=== PATIENT | female | born 1940 | race Caucasian/White ===

== ENCOUNTER 2020-03-20 17:09 | Inpatient (IN) | payer MEDICARE, OTHER ==
[~2020-03-20] VITALS: Ht 152.4 cm; Wt 55.0 kg
--- NOTE | 2020-03-20 17:29 | NUR ---
Patient arrived via bed to room 504. no family present. Patient alert to self. Unable to answer admission questions or home med list at this time. Completed history from what was told in report from [facility] RN. Will notify Dr. Hinson of admission so orders can be made. Will continue to monitor.
[2020-03-20] MEDS ORDERED: ONDANSETRON PF 4 MG/2 ML VIAL. IVP PRN (18:00)
[2020-03-20] MEDS ORDERED: PIP/TAZO PER PHARMACY MC PRN (18:00)
[2020-03-20] MEDS ORDERED: MORPHINE SULFATE 2 MG/ML VIAL. IV PRN (18:00)
[2020-03-20] MEDS: IV NORMAL SALINE 1000ML BAG 1,000 ML IV SCH (18:28)
[2020-03-20] MEDS: PIPERACILLIN/TAZOBACTAM 2.25 GM in IV NORMAL SALINE 50ML 50 ML IV SCH ×2 (18:48→23:51)
[2020-03-20 19:00] VITALS: BP 163/78
[2020-03-20] MEDS: VANCOMYCIN PER PHARMACY MC PRN ×2 (19:09→19:11)
--- NOTE | 2020-03-20 19:13 | NUR ---
Pharmacy Vancomycin Dosing Note S:Consulted to monitor and dose vancomycin started 03/20/20. O:SIGRID CADENA is a 80 year old F with Sepsis UTI . Height: feet, inches Weight: kg [place] Body Weight: 52.40 Adjusted Body Weight: 52.24 Dosing Weight: Actual Other Antibiotics: ZOSYN LABS: Last BUN: Last Creatinine: 1.6 Creatinine Clearance: 23 mL/min Last WBC: 12.5 Last Procalcitonin: Tmax (past 24 hours): 98.4 Microbiology: I/O: Drug Levels: Last level: on at Last dose given 03/20/20 at 2000 Vancomycin Dosing: Loading Dose: 1250 mg x1 Dosing Weight: Actual Target Trough: 15-20 A: Based on: WEIGHT AND RENAL FUNCTION, VANCOMYCIN 1.25GM IV BOLUS GIVEN, P: 1. Begin Vancomycin 1000 mg IV q48h 2. Follow up Trough level on 03/24/20 at 1930 3. Pharmacy will continue to monitor, follow and adjust therapy as needed. GERMAN RUBALCAVA [facility], 03/20/20 [id number]
[2020-03-20 19:39] LABS: BILIRUBIN,URINE NEGATIVE (NEG); CLARITY,URINE CLOUDY; COLOR,URINE YELLOW; NITRITE,URINE POSITIVE (NEG); PH,URINE 5.5 (<5.0-8.0); PROTEIN,URINE 100 mg/dL (NEG-TRACE); UROBILINOGEN,URINE 0.2 mg/dL (0.2 mg/dL)
[2020-03-20 19:43] LABS: BACTERIA,URINE MANY /HPF (0-FEW); RBC,URINE OCC /HPF (0-2); SQUAMOUS EPITHELIAL CELL,UR FEW /LPF; WBC,URINE TNTC /HPF (0-4)
[2020-03-20] MEDS ORDERED: VANCOMYCIN 1.25 GM in IV NORMAL SALINE 250ML 250 ML IV ONE (20:00)
--- NOTE | 2020-03-20 20:56 | NUR ---
POSITIVE SEPSIS SCREEN NOTE: Spoke with Elise in ICU. Informed her of patient status and sepsis screen criteria. Patient was received from [facility] ED with admitting diagnosis which included sepsis, had already had blood cultures drawn, lactic 1.3, Vanc and Zosyn ordered and verified with ID during call back from consult. Stated that patient had good coverage for tonight and she would see the patient in the AM. No further recommendations at this time from Elise, unless patient becomes febrile, then a repeat lactic was suggested along with a call to ID to notify of patient status. Will continue to monitor.
[2020-03-20 23:00] VITALS: BP 177/81
[2020-03-21] VITALS (14 sets, daily range): BP systolic 106–174; BP diastolic 49–87
[2020-03-21] MEDS: PIPERACILLIN/TAZOBACTAM 2.25 GM in IV NORMAL SALINE 50ML 50 ML IV SCH (05:32)
[2020-03-21 06:40] LABS: BASO % 0 % (0-3); EOS % 0 % (0-3); HEMATOCRIT 34.5 % (36.0-47.0); HEMOGLOBIN 10.3 g/dL (12.0-15.5); LYMPH # 0.5 x10^3/uL (1.0-4.8); LYMPH % 3 % (24-48); MEAN CORPUSCULAR HEMOGLOBIN 33 pg (25-35); MEAN CORPUSCULAR HGB CONC 30 g/dL (31-37); MEAN CORPUSCULAR VOLUME 111 fL (79-100); MONO # 0.7 x10^3/uL (0.0-1.1); MONO % 5 % (0-9); NEUT # 13.8 x10^3/uL (1.8-7.7); NEUT % 92 % (31-73); PLATELET COUNT 236 x10^3/uL (140-400); RED BLOOD COUNT 3.12 x10^6/uL (3.50-5.40); RED CELL DISTRIBUTION WIDTH 22.5 % (11.5-14.5)
[2020-03-21] MEDS: IV NORMAL SALINE 1000ML BAG 1,000 ML IV SCH ×2 (07:20→20:54)
[2020-03-21 08:14] LABS: ALBUMIN/GLOBULIN RATIO 0.9 (1.0-1.7); CALCIUM 9.4 mg/dL (8.5-10.1); CREATININE 1.4 mg/dL (0.6-1.0); GFR 36.4; POTASSIUM 4.6 mmol/L (3.5-5.1); TOTAL BILIRUBIN 0.4 mg/dL (0.2-1.0); TOTAL PROTEIN 6.4 g/dL (6.4-8.2)
[2020-03-21] MEDS ORDERED: SODIUM BICARB ADULT 8.4% 50 MEQ/50 ML DISP.SYRIN. IV ONE (08:15)
[2020-03-21] MEDS ORDERED: ALBUTEROL SULFATE 2.5 MG/3 ML NEBU. NEB PRN (08:15)
[2020-03-21] MEDS: BUDESONIDE 0.5 MG/2 ML NEBU. NEB SCH ×2 (08:47→20:30)
[2020-03-21] MEDS: IPRATRPIUM/ALBUTEROL 0.5/2.5MG 3 ML NEBU. NEB SCH ×4 (08:47→20:30)
--- NOTE | 2020-03-21 08:48 | PDOC2 ---
CONSULT Date of Consult Date of Consult DATE: 03/21/20 TIME: 08:36 Reason for Consult Reason for Consult: gallstone pancreatitis Referring Physician Referring Physician: ER Identification/Chief Complaint Chief Complaint abdominal pain Source Source: Chart review, Patient History of Present Illness Reason for Visit: Patient is a very poor historian. Reports worsening abdominal pain x 1 week. Poor appetite, increased weakness, denies emesis. No diarrhea. From records c diff in September 2019. UTIs in past. Normally from ER note functional --currently not at baseline Denies O2 use at home Past Medical History Cardiovascular: HTN, Hyperlipidemia Pulmonary: Asthma, Bronchitis, Other (Pulmonary HTN) GI: GERD Endocrine: Diabetes Past Surgical History Past Surgical History: Other (unknown ) Family History Family History: Family History Unknown Social History No ALCOHOL: none Drugs: None Lives: with Family Current Medications Current Medications Current Medications Sodium Chloride 1,000 ml @ 75 mls/hr [id number] IV Last administered on 03/20/20at 18:28; Start 03/20/20 at 18:00 Piperacillin Sod/ Tazobactam Sod (Zosyn Per Pharmacy) 1 each PRN DAILY PRN MC SEE COMMENTS; Start 03/20/20 at 18:00 Vancomycin HCl (Vanco Per Pharmacy) 1 each PRN DAILY PRN MC SEE COMMENTS Last administered on 03/20/20at 19:11; Start 03/20/20 at 18:00 Ondansetron HCl (Zofran) 4 mg PRN Q6HRS PRN IVP NAUSEA/VOMITING; Start 03/20/20 at 18:00 Morphine Sulfate (Morphine Sulfate) 2 mg PRN Q2HR PRN IV PAIN; Start 03/20/20 at 18:00 Piperacillin Sod/ Tazobactam Sod 2.25 gm/Sodium Chloride 50 ml @ 100 mls/hr Q6HRS IV Last administered on 03/21/20at 05:32; Start 03/20/20 at 19:00 Vancomycin HCl 1.25 gm/Sodium Chloride 250 ml @ 167 mls/hr 1X ONCE IV Last administered on 03/20/20at 20:38; Start 03/20/20 at 20:00; Stop 03/20/20 at 21:29; Status DC Vancomycin HCl 1 gm/Sodium Chloride 250 ml @ 250 mls/hr Q48H IV ; Start 03/22/20 at 20:00 Vancomycin HCl (Vancomycin Trough Level) 1 each 1X ONCE MC ; Start 03/24/20 at 19:30; Stop 03/24/20 at 19:31 Albuterol/ Ipratropium (Duoneb) 3 ml RTQID NEB ; Start 03/21/20 at 08:15 Budesonide (Pulmicort) 0.5 mg RTBID NEB ; Start 03/21/20 at 08:15 Albuterol Sulfate (Ventolin Neb Soln) 2.5 mg PRN Q4HRS PRN NEB SHORTNESS OF BREATH; Start 03/21/20 at 08:15 Sodium Bicarbonate (Sodium Bicarb Adult 8.4% Syr) 50 meq 1X ONCE IV ; Start 03/21/20 at 08:15; Stop 03/21/20 at 08:32; Status DC Allergies Allergies: Coded Allergies: MARQUIS Inhibitors (Verified Allergy, Unknown, 03/20/20) Sulfa (Sulfonamide Antibiotics) (Verified Allergy, Unknown, 03/20/20) ciprofloxacin (Verified Allergy, Unknown, 03/20/20) glimepiride (Verified Allergy, Unknown, 03/20/20) levofloxacin (Verified Allergy, Unknown, 03/20/20) nitroglycerin (Verified Allergy, Unknown, 03/20/20) ROS General: YES: Fatigue, Malaise, Appetite (Loss) PSYCHOLOGICAL ROS: No: Anxiety, Depression Eyes: No Blurry vision, No Double vision HEENT: No: Heacaches, Sore Throat Hematological and Lymphatic: No: Bleeding Problems, Blood Clots Respiratory: YES: Shortness of breath; No: Cough Cardiovascular: No Chest Pain, No Palpitations Gastrointestinal: Yes Other (see hpi) Genitourinary: YES Dysuria; No Hematuria Musculoskeletal: Yes Muscular Weakness; No Joint Pain Neurological: No Impaired Coord/balance, No Numbness/Tingling Skin: No Pruritus, No Rash Physical Exam General: Cooperative, Other (acutely ill appearing ) HEENT: PERRLA, Mucous membr. moist/pink Lungs: Other (diminished, SOA on exam, requiring 02) Heart: Other (tachy) Abdomen: Soft, Other (mildly ttp upper abdomen ) Skin: No rashes, No breakdown Neuro: Normal speech, Sensation intact Psych/Mental Status: Other (confusion) MUSCULOSKELETAL: No deformity, No swelling Vitals VITALS Vital Signs Date Time Temp Pulse Resp B/P (MAP) Pulse Ox O2 Delivery O2 Flow Rate FiO2 03/21/20 03:00 97.6 117 35 174/81 (112) 90 Nasal Cannula 2.0 97.6 Labs Labs Laboratory Tests Test 03/20/20 17:50 03/20/20 20:35 03/21/20 06:00 Urine Collection Type Unknown Urine Color Yellow Urine Clarity Cloudy Urine pH 5.5 (<5.0-8.0) Urine Specific [place] 1.020 (1.000-1.030) Urine Protein 100 mg/dL (NEG-TRACE) Urine Glucose (UA) Negative mg/dL (NEG) Urine Ketones (Stick) Trace mg/dL (NEG) Urine Blood Large (NEG) Urine Nitrite Positive (NEG) Urine Bilirubin Negative (NEG) Urine Urobilinogen Dipstick 0.2 mg/dL (0.2 mg/dL) Urine Leukocyte Esterase Large (NEG) Urine RBC Occ /HPF (0-2) Urine WBC Tntc /HPF (0-4) Urine Squamous Epithelial Cells Few /LPF Urine Bacteria Many /HPF (0-FEW) Urine Mucus Mod /LPF Glucose (Fingerstick) 134 mg/dL (70-99) White Blood Count 15.0 x10^3/uL (4.0-11.0) Red Blood Count 3.12 x10^6/uL (3.50-5.40) Hemoglobin 10.3 g/dL (12.0-15.5) Hematocrit 34.5 % (36.0-47.0) Mean Corpuscular Volume 111 fL (79-100) Mean Corpuscular Hemoglobin 33 pg (25-35) Mean Corpuscular Hemoglobin Concent 30 g/dL (31-37) Red Cell Distribution Width 22.5 % (11.5-14.5) Platelet Count 236 x10^3/uL (140-400) Neutrophils (%) (Auto) 92 % (31-73) Lymphocytes (%) (Auto) 3 % (24-48) Monocytes (%) (Auto) 5 % (0-9) Eosinophils (%) (Auto) 0 % (0-3) Basophils (%) (Auto) 0 % (0-3) Neutrophils # (Auto) 13.8 x10^3/uL (1.8-7.7) Lymphocytes # (Auto) 0.5 x10^3/uL (1.0-4.8) Monocytes # (Auto) 0.7 x10^3/uL (0.0-1.1) Eosinophils # (Auto) 0.0 x10^3/uL (0.0-0.7) Basophils # (Auto) 0.0 x10^3/uL (0.0-0.2) Sodium Level 146 mmol/L (136-145) Potassium Level 4.6 mmol/L (3.5-5.1) Chloride Level 115 mmol/L (98-107) Carbon Dioxide Level 11 mmol/L (21-32) Anion Gap 20 (6-14) Blood Urea Nitrogen 38 mg/dL (7-20) Creatinine 1.4 mg/dL (0.6-1.0) Estimated GFR (Cockcroft-Gault) 36.4 BUN/Creatinine Ratio 27 (6-20) Glucose Level 152 mg/dL (70-99) Calcium Level 9.4 mg/dL (8.5-10.1) Total Bilirubin 0.4 mg/dL (0.2-1.0) Aspartate Amino Transf (AST/SGOT) 31 U/L (15-37) Alanine Aminotransferase (ALT/SGPT) 21 U/L (14-59) Alkaline Phosphatase 66 U/L (46-116) Total Protein 6.4 g/dL (6.4-8.2) Albumin 3.0 g/dL (3.4-5.0) Albumin/Globulin Ratio 0.9 (1.0-1.7) Lipase 615 U/L (73-393) Laboratory Tests Test 03/20/20 17:50 03/20/20 20:35 03/21/20 06:00 Urine Collection Type Unknown Urine Color Yellow Urine Clarity Cloudy Urine pH 5.5 (<5.0-8.0) Urine Specific [place] 1.020 (1.000-1.030) Urine Protein 100 mg/dL (NEG-TRACE) Urine Glucose (UA) Negative mg/dL (NEG) Urine Ketones (Stick) Trace mg/dL (NEG) Urine Blood Large (NEG) Urine Nitrite Positive (NEG) Urine Bilirubin Negative (NEG) Urine Urobilinogen Dipstick 0.2 mg/dL (0.2 mg/dL) Urine Leukocyte Esterase Large (NEG) Urine RBC Occ /HPF (0-2) Urine WBC Tntc /HPF (0-4) Urine Squamous Epithelial Cells Few /LPF Urine Bacteria Many /HPF (0-FEW) Urine Mucus Mod /LPF Glucose (Fingerstick) 134 mg/dL (70-99) White Blood Count 15.0 x10^3/uL (4.0-11.0) Red Blood Count 3.12 x10^6/uL (3.50-5.40) Hemoglobin 10.3 g/dL (12.0-15.5) Hematocrit 34.5 % (36.0-47.0) Mean Corpuscular Volume 111 fL (79-100) Mean Corpuscular Hemoglobin 33 pg (25-35) Mean Corpuscular Hemoglobin Concent 30 g/dL (31-37) Red Cell Distribution Width 22.5 % (11.5-14.5) Platelet Count 236 x10^3/uL (140-400) Neutrophils (%) (Auto) 92 % (31-73) Lymphocytes (%) (Auto) 3 % (24-48) Monocytes (%) (Auto) 5 % (0-9) Eosinophils (%) (Auto) 0 % (0-3) Basophils (%) (Auto) 0 % (0-3) Neutrophils # (Auto) 13.8 x10^3/uL (1.8-7.7) Lymphocytes # (Auto) 0.5 x10^3/uL (1.0-4.8) Monocytes # (Auto) 0.7 x10^3/uL (0.0-1.1) Eosinophils # (Auto) 0.0 x10^3/uL (0.0-0.7) Basophils # (Auto) 0.0 x10^3/uL (0.0-0.2) Sodium Level 146 mmol/L (136-145) Potassium Level 4.6 mmol/L (3.5-5.1) Chloride Level 115 mmol/L (98-107) Carbon Dioxide Level 11 mmol/L (21-32) Anion Gap 20 (6-14) Blood Urea Nitrogen 38 mg/dL (7-20) Creatinine 1.4 mg/dL (0.6-1.0) Estimated GFR (Cockcroft-Gault) 36.4 BUN/Creatinine Ratio 27 (6-20) Glucose Level 152 mg/dL (70-99) Calcium Level 9.4 mg/dL (8.5-10.1) Total Bilirubin 0.4 mg/dL (0.2-1.0) Aspartate Amino Transf (AST/SGOT) 31 U/L (15-37) Alanine Aminotransferase (ALT/SGPT) 21 U/L (14-59) Alkaline Phosphatase 66 U/L (46-116) Total Protein 6.4 g/dL (6.4-8.2) Albumin 3.0 g/dL (3.4-5.0) Albumin/Globulin Ratio 0.9 (1.0-1.7) Lipase 615 U/L (73-393) Assessment/Plan Assessment/Plan gallstone pancreatitis---benign abdominal exam UTI hypoxia, pulmonary HTN sepsis on admission medical management bowel rest RADHIKA BAKER SMOKE CHASER Mar 21, 2020 08:48
--- NOTE | 2020-03-21 09:03 | PDOC1 ---
History and Physical Date of Admission Date of Admission DATE: 03/21/20 TIME: 08:57 Identification/Chief Complaint Chief Complaint Abdominal pain Source Source: Caregiver, Chart review, Patient History of Present Illness History of Present Illness Ms Fierro is a 80 yo w/ PMHx C. diff in September, history of gallstone, history of bronchial asthma, hypertension, hyperlipidemia, gastroesophageal reflux disease, type 2 diabetes, pulmonary hypertension, Sjogren syndrome, squamous cell cancer of the skin, basal cell carcinoma who presents to [facility] ED c/o abdominal pain. She reports generalized abdominal pain, she is unable to describe characteristics, frequency, provoking and/or alleviating factors. She denies any recent fever or COVID-19 contact. She lives at home with and typically performs all activities of daily living without issues, admits she has been more weak and sedentary recently. She does note diarrhea but cannot characterize type of diarrhea/consistency/frequency. She spoke with her primary care physician this morning who recommended she come seek evaluation at the ER. 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 Daughter reports patient is not at baseline, admits patient is chronically ill and has been on a steady decline particularly over the past 2 years, but has been ill for the past 7 years. She has been alternating between 7 C. difficile and urinary tract infections for the past 2 years and also has been evaluated by at [facility] for cardiomyopathy recently did have an appointment [address] Cheng and had her diuretic dose increased. Labs at [facility] show WBC 12.5, Hb 10.7, platelets 298, MCV 115, NA 141, K4.6, BUN 42, CR 1.6, albumin 3.5, glucose 165, calcium 10.9, CK 221, lipase 2020, BNP 99323. Chest x-ray with conspicuous right hilar fullness. CT head with Mild cerebral volume loss. Mild chronic small vessel ischemic disease. CT chest abdomen and pelvis reveal peripancreatic fat haziness, right upper lobe and left lower lobe solid nodules, left renal 11 mm hyperdense lesion and cholelithiasis. EKG interpreted as narrow complex sinus tachycardia at 117 bpm, unremarkable intervals, no axis deviation, no acute ischemic findings, no STEMI Seen at [facility] with heart rate 125, respiratory rate 45/min struggling to breathe on 2 L of oxygen. Conversational dyspnea not able to answer more than yes/no questions. Seen with GI, general surgery, and pulmonology and immediate transfer to ICU is been initiated on BiPAP. I have informed her daughter of her current status, and her daughter has made it clear she does not wish for mother to have chest compressions if she does have cardiac arrest. Past Medical History Cardiovascular: HTN, Hyperlipidemia Pulmonary: Asthma, Bronchitis, Other (Pulmonary HTN) GI: GERD Endocrine: Diabetes Past Surgical History Past Surgical History: Other (unknown ) Family History Family History: Family History Unknown Social History Smoke: No ALCOHOL: none Drugs: None Current Medications Current Medications Current Medications Sodium Chloride 1,000 ml @ 75 mls/hr [id number] IV Last administered on 03/20/20at 18:28; Start 03/20/20 at 18:00 Piperacillin Sod/ Tazobactam Sod (Zosyn Per Pharmacy) 1 each PRN DAILY PRN MC SEE COMMENTS; Start 03/20/20 at 18:00 Vancomycin HCl (Vanco Per Pharmacy) 1 each PRN DAILY PRN MC SEE COMMENTS Last administered on 03/20/20at 19:11; Start 03/20/20 at 18:00 Ondansetron HCl (Zofran) 4 mg PRN Q6HRS PRN IVP NAUSEA/VOMITING; Start 03/20/20 at 18:00 Morphine Sulfate (Morphine Sulfate) 2 mg PRN Q2HR PRN IV PAIN; Start 03/20/20 at 18:00 Piperacillin Sod/ Tazobactam Sod 2.25 gm/Sodium Chloride 50 ml @ 100 mls/hr Q6HRS IV Last administered on 03/21/20at 05:32; Start 03/20/20 at 19:00 Vancomycin HCl 1.25 gm/Sodium Chloride 250 ml @ 167 mls/hr 1X ONCE IV Last administered on 03/20/20at 20:38; Start 03/20/20 at 20:00; Stop 03/20/20 at 21:29; Status DC Vancomycin HCl 1 gm/Sodium Chloride 250 ml @ 250 mls/hr Q48H IV ; Start 03/22/20 at 20:00 Vancomycin HCl (Vancomycin Trough Level) 1 each 1X ONCE MC ; Start 03/24/20 at 19:30; Stop 03/24/20 at 19:31 Albuterol/ Ipratropium (Duoneb) 3 ml RTQID NEB Last administered on 03/21/20at 08:47; Start 03/21/20 at 08:15 Budesonide (Pulmicort) 0.5 mg RTBID NEB Last administered on 03/21/20at 08:47; Start 03/21/20 at 08:15 Albuterol Sulfate (Ventolin Neb Soln) 2.5 mg PRN Q4HRS PRN NEB SHORTNESS OF BREATH; Start 03/21/20 at 08:15 Sodium Bicarbonate (Sodium Bicarb Adult 8.4% Syr) 50 meq 1X ONCE IV Last administered on 03/21/20at 08:48; Start 03/21/20 at 08:15; Stop 03/21/20 at 08:32; Status DC Allergies Allergies: Coded Allergies: MARQUIS Inhibitors (Verified Allergy, Unknown, 03/20/20) Sulfa (Sulfonamide Antibiotics) (Verified Allergy, Unknown, 03/20/20) ciprofloxacin (Verified Allergy, Unknown, 03/20/20) glimepiride (Verified Allergy, Unknown, 03/20/20) levofloxacin (Verified Allergy, Unknown, 03/20/20) nitroglycerin (Verified Allergy, Unknown, 03/20/20) ROS Review of System Unable to obtain, patient confused and only responding with yes and no Vitals Vitals Vital Signs Date Time Temp Pulse Resp B/P (MAP) Pulse Ox O2 Delivery O2 Flow Rate FiO2 03/21/20 08:45 96 Nasal Cannula 2.5 03/21/20 07:00 96.9 119 32 162/87 (112) 96.9 Labs Labs Laboratory Tests Test 03/20/20 17:50 03/20/20 20:35 03/21/20 06:00 03/21/20 07:30 Urine Collection Type Unknown Urine Color Yellow Urine Clarity Cloudy Urine pH 5.5 (<5.0-8.0) Urine Specific [place] 1.020 (1.000-1.030) Urine Protein 100 mg/dL (NEG-TRACE) Urine Glucose (UA) Negative mg/dL (NEG) Urine Ketones (Stick) Trace mg/dL (NEG) Urine Blood Large (NEG) Urine Nitrite Positive (NEG) Urine Bilirubin Negative (NEG) Urine Urobilinogen Dipstick 0.2 mg/dL (0.2 mg/dL) Urine Leukocyte Esterase Large (NEG) Urine RBC Occ /HPF (0-2) Urine WBC Tntc /HPF (0-4) Urine Squamous Epithelial Cells Few /LPF Urine Bacteria Many /HPF (0-FEW) Urine Mucus Mod /LPF Glucose (Fingerstick) 134 mg/dL (70-99) 143 mg/dL (70-99) White Blood Count 15.0 x10^3/uL (4.0-11.0) Red Blood Count 3.12 x10^6/uL (3.50-5.40) Hemoglobin 10.3 g/dL (12.0-15.5) Hematocrit 34.5 % (36.0-47.0) Mean Corpuscular Volume 111 fL (79-100) Mean Corpuscular Hemoglobin 33 pg (25-35) Mean Corpuscular Hemoglobin Concent 30 g/dL (31-37) Red Cell Distribution Width 22.5 % (11.5-14.5) Platelet Count 236 x10^3/uL (140-400) Neutrophils (%) (Auto) 92 % (31-73) Lymphocytes (%) (Auto) 3 % (24-48) Monocytes (%) (Auto) 5 % (0-9) Eosinophils (%) (Auto) 0 % (0-3) Basophils (%) (Auto) 0 % (0-3) Neutrophils # (Auto) 13.8 x10^3/uL (1.8-7.7) Lymphocytes # (Auto) 0.5 x10^3/uL (1.0-4.8) Monocytes # (Auto) 0.7 x10^3/uL (0.0-1.1) Eosinophils # (Auto) 0.0 x10^3/uL (0.0-0.7) Basophils # (Auto) 0.0 x10^3/uL (0.0-0.2) Sodium Level 146 mmol/L (136-145) Potassium Level 4.6 mmol/L (3.5-5.1) Chloride Level 115 mmol/L (98-107) Carbon Dioxide Level 11 mmol/L (21-32) Anion Gap 20 (6-14) Blood Urea Nitrogen 38 mg/dL (7-20) Creatinine 1.4 mg/dL (0.6-1.0) Estimated GFR (Cockcroft-Gault) 36.4 BUN/Creatinine Ratio 27 (6-20) Glucose Level 152 mg/dL (70-99) Calcium Level 9.4 mg/dL (8.5-10.1) Total Bilirubin 0.4 mg/dL (0.2-1.0) Aspartate Amino Transf (AST/SGOT) 31 U/L (15-37) Alanine Aminotransferase (ALT/SGPT) 21 U/L (14-59) Alkaline Phosphatase 66 U/L (46-116) Total Protein 6.4 g/dL (6.4-8.2) Albumin 3.0 g/dL (3.4-5.0) Albumin/Globulin Ratio 0.9 (1.0-1.7) Lipase 615 U/L (73-393) Laboratory Tests Test 03/20/20 17:50 03/20/20 20:35 03/21/20 06:00 03/21/20 07:30 Urine Collection Type Unknown Urine Color Yellow Urine Clarity Cloudy Urine pH 5.5 (<5.0-8.0) Urine Specific [place] 1.020 (1.000-1.030) Urine Protein 100 mg/dL (NEG-TRACE) Urine Glucose (UA) Negative mg/dL (NEG) Urine Ketones (Stick) Trace mg/dL (NEG) Urine Blood Large (NEG) Urine Nitrite Positive (NEG) Urine Bilirubin Negative (NEG) Urine Urobilinogen Dipstick 0.2 mg/dL (0.2 mg/dL) Urine Leukocyte Esterase Large (NEG) Urine RBC Occ /HPF (0-2) Urine WBC Tntc /HPF (0-4) Urine Squamous Epithelial Cells Few /LPF Urine Bacteria Many /HPF (0-FEW) Urine Mucus Mod /LPF Glucose (Fingerstick) 134 mg/dL (70-99) 143 mg/dL (70-99) White Blood Count 15.0 x10^3/uL (4.0-11.0) Red Blood Count 3.12 x10^6/uL (3.50-5.40) Hemoglobin 10.3 g/dL (12.0-15.5) Hematocrit 34.5 % (36.0-47.0) Mean Corpuscular Volume 111 fL (79-100) Mean Corpuscular Hemoglobin 33 pg (25-35) Mean Corpuscular Hemoglobin Concent 30 g/dL (31-37) Red Cell Distribution Width 22.5 % (11.5-14.5) Platelet Count 236 x10^3/uL (140-400) Neutrophils (%) (Auto) 92 % (31-73) Lymphocytes (%) (Auto) 3 % (24-48) Monocytes (%) (Auto) 5 % (0-9) Eosinophils (%) (Auto) 0 % (0-3) Basophils (%) (Auto) 0 % (0-3) Neutrophils # (Auto) 13.8 x10^3/uL (1.8-7.7) Lymphocytes # (Auto) 0.5 x10^3/uL (1.0-4.8) Monocytes # (Auto) 0.7 x10^3/uL (0.0-1.1) Eosinophils # (Auto) 0.0 x10^3/uL (0.0-0.7) Basophils # (Auto) 0.0 x10^3/uL (0.0-0.2) Sodium Level 146 mmol/L (136-145) Potassium Level 4.6 mmol/L (3.5-5.1) Chloride Level 115 mmol/L (98-107) Carbon Dioxide Level 11 mmol/L (21-32) Anion Gap 20 (6-14) Blood Urea Nitrogen 38 mg/dL (7-20) Creatinine 1.4 mg/dL (0.6-1.0) Estimated GFR (Cockcroft-Gault) 36.4 BUN/Creatinine Ratio 27 (6-20) Glucose Level 152 mg/dL (70-99) Calcium Level 9.4 mg/dL (8.5-10.1) Total Bilirubin 0.4 mg/dL (0.2-1.0) Aspartate Amino Transf (AST/SGOT) 31 U/L (15-37) Alanine Aminotransferase (ALT/SGPT) 21 U/L (14-59) Alkaline Phosphatase 66 U/L (46-116) Total Protein 6.4 g/dL (6.4-8.2) Albumin 3.0 g/dL (3.4-5.0) Albumin/Globulin Ratio 0.9 (1.0-1.7) Lipase 615 U/L (73-393) Images Images CXR: The cardiomediastinal silhouette is within normal limits. Lungs are clear. Right hilar fullness may be associated with lymphadenopathy. There are no significant pleural effusions. There is no pulmonary vascular congestion. No pneumothorax. No suspicious osseous abnormality. IMPRESSION: There is no acute cardiopulmonary process. More conspicuous right hilar fullness compared to prior examination. Consideration may be given for lymphadenopathy. These nodes could be calcified suggesting underlying granulomatous exposure. However, further characterization with CT chest may be of benefit. CT HEAD WO CONTRAST Mild generalized cerebral and cerebellar volume loss. Mild nonspecific periventricular hypoattenuation, most commonly seen with chronic small vessel ischemic disease. Calcified atherosclerosis of the bilateral cavernous and para clinoid internal carotid arteries and intracranial vertebral arteries. No intra- or extra-axial mass or fluid collection. No acute hemorrhage. The ventricles are normal in size, shape, and morphology. The bourgeois-white matter junction is normal. The subarachnoid cisterns are patent. The visualized paranasal sinuses are normal. The visualized portions of the orbits and globes are normal. The mastoid air cells are clear. The associate professor of management topogram shows no lytic lesion or fracture. Impression: No acute intracranial process. Mild cerebral volume loss. Mild chronic small vessel ischemic disease. CT CHEST ABDOMEN PELVIS WO Motion artifact degrades majority. The thyroid is symmetric. There is no axillary, mediastinal, or hilar adenopathy, although evaluation of the ronnie is limited without IV contrast. Atherosclerosis of the thoracic aorta and branch vessels. Cardiomegaly. Coronary artery atherosclerotic disease. There is no pericardial effusion. Right upper lobe part solid nodule with 6 mm solid component and left lower lobe part solid nodule with 6 mm solid component. The central airways are patent. No pleural abnormality. Evaluation of solid abdominal viscera is limited without the use of IV contrast. However, the liver, spleen, and adrenal glands are unremarkable. Cholelithiasis. Ill-defined haziness in the peripancreatic fat. Left renal 11 mm hyperdense lesion measuring 55 Hounsfield units. There is no significant mesenteric or retroperitoneal adenopathy identified, though evaluation is limited without intravenous contrast. There is no evidence of free intraperitoneal fluid or pneumoperitoneum. Colonic diverticulosis Bladder is unremarkable. Uterus is present There is no significant pelvic ascites. No significant iliac or inguinal adenopathy is identified. No acute osseous abnormality. Degenerative changes of the spine IMPRESSION: 1. Ill-defined haziness in the peripancreatic fat, nonspecific but can be seen with hepatitis. Correlate with laboratory values. No fluid collection. 2. Right upper lobe and left lower lobe part solid nodules. These could represent focal areas of infection/inflammation including fungal or potentially aspiration. Underlying neoplasm not excluded. Recommend three-month follow-up chest CT to assess stability/resolution. 3. Indeterminate left renal 11 mm hyperdense lesion, possibly a cyst with proteinaceous debris. Renal ultrasound could further characterize cystic versus solid nature. 4. Cholelithiasis. VTE Prophylaxis Ordered VTE Prophylaxis Devices: No VTE Pharmacological Prophylaxi: Yes Assessment/Plan Assessment/Plan A/P: Acute encephalopathy - likely metabolic from pancreatitis, sepsis. Sepsis -likely secondary to UTI and C. difficile, will consult infectious diseases for assistance. UTI (urinary tract infection) -started on empiric vancomycin, Rocephin and Zosyn by ED, will ID consulted. Acute Pancreatitis -unclear etiology, may be due to sepsis. GI consulted for assistance. Left renal mass - will obtain renal ultrasound when she is more stable. Pulmonary nodules - concerning for solid mass bilaterally. Pulmonology consulted, needs close f/u. H/o asthma - nebulizers ordered Cholelithiasis - general surgery following Intractable Abdominal pain -lateral portion had a physical exam. Concerning for potential ischemic colitis, however pancreatitis does not possible as well. GI and general surgery History of recurrent Clostridium difficile. Acute hypoxic respiratory failure, on BiPAP. Acute on chronic Anemia - possibly GI bleed, will monitor. Weight loss - likely from chronic and acid disease History of Sjogren's - worsening Diabetes mellitus - Sliding scale Severe metabolic acidosis - likely from sepsis, will need close monitoring Acute kidney injury - vasomotor nephropathy from sepsis, will hydrate Elevated BNP - does have cardiology at [facility]. Will consult cardiology for further recommendations as her fluid status is difficult to currently interpret and with sepsis I would err on giving fluids as she is on BIPAP FEN - NPO PPX - heparin CODE - No compressions or shocks, meds and vent ok per daughter, Heydi, DPOA, . ( is also DPOA, however daughter notes he has early alzheimer's) She does have 3 living siblings as well who are not medical DPOA. Dispo - ICU for critical illness and respiratory distress CC time 58 minutes Justifications for Admission Other Justification SANTI LINO MD Mar 21, 2020 09:03
[2020-03-21 09:07] LABS: BASE EXCESS ABG -20 mmol/L (-3-3); HCO3 ABG 7 mmol/L (21-28); PO2 ABG 85 mmHg (65-108); SAT O2 ABG 93 % (92-99)
[2020-03-21 09:09] LABS: FIO2 ABG 30; PCO2 ABG 18 mmHg (35-46)
--- NOTE | 2020-03-21 09:09 | PDOC2 ---
GI CONSULT Date of Service: DATE: 03/21/20 TIME: 09:09 Reason For Consult: pancreatitis HPI: HPI: 80 y/o female sent from [facility]. Per nurse, was told she was found by family at home in a hamper and taken to ER. Currently limited history from pt - cannot remember what hospital she's at, cannot tell me the year. RT and nurse present, also d/w Dr. Woods/pulm and Gretchen/surgery. Per review of records - saw PCP on Wednesday, had antibiotics prescribed (but didn't start) for presumed enterocolitis - h/o C Diff last treated in 09/2019, "long history of GI problems." ER note indicates she reported abdominal pain and diarrhea but couldn't describe/elaborate. At [facility]: UA c/w UTI, WBC 13, Hgb 10.7, macrocytosis, CO2 11, normal lactic, normal LFTs, BNP >67889, lipase 2019, elevated CK. CXR unremarkable, CT head w/o acute process but noted mild cerebral volume loss and mild chronic small vessel ischemic disease, CT C/A/P w/o contrast limited by motion artifact but showed cardiomegaly, CAD, RUL and HEAVEN nodules, unremarkable liver, cholelithiasis, left renal lesion, no significant adenopathy, diverticulosis, unremarkable bladder, and ill-defined haziness in peripancreatic fat (nonspecific but possible w/ hepatitis). Records indicate h/o weight loss, dysphagia, and non-specific colitis on CT when admitted to [facility] in 2017. Records also indicate h/o GERD and past colonoscopy. PMH: PMH: per [facility] records: asthma, HTN, HLD, GERD, DM, OA, pulm hypertension, Sjogren's, BCC, SCC, UTI cystoscopy w/ bladder biopsy, salivary gland surgery, cataract extraction (bilateral) FH: Family History: Cancer (lung) Social History: Smoke: No ALCOHOL: none Drugs: None ROS: Limited, refer to HPI. Vitals: Vitals: Vital Signs Date Time Temp Pulse Resp B/P (MAP) Pulse Ox O2 Delivery O2 Flow Rate FiO2 03/21/20 08:45 96 Nasal Cannula 2.5 03/21/20 07:00 96.9 119 32 162/87 (112) 96.9 Labs: Labs: Laboratory Tests Test 03/20/20 17:50 03/20/20 20:35 03/21/20 06:00 03/21/20 07:30 Urine Collection Type Unknown Urine Color Yellow Urine Clarity Cloudy Urine pH 5.5 (<5.0-8.0) Urine Specific [place] 1.020 (1.000-1.030) Urine Protein 100 mg/dL (NEG-TRACE) Urine Glucose (UA) Negative mg/dL (NEG) Urine Ketones (Stick) Trace mg/dL (NEG) Urine Blood Large (NEG) Urine Nitrite Positive (NEG) Urine Bilirubin Negative (NEG) Urine Urobilinogen Dipstick 0.2 mg/dL (0.2 mg/dL) Urine Leukocyte Esterase Large (NEG) Urine RBC Occ /HPF (0-2) Urine WBC Tntc /HPF (0-4) Urine Squamous Epithelial Cells Few /LPF Urine Bacteria Many /HPF (0-FEW) Urine Mucus Mod /LPF Glucose (Fingerstick) 134 mg/dL (70-99) 143 mg/dL (70-99) White Blood Count 15.0 x10^3/uL (4.0-11.0) Red Blood Count 3.12 x10^6/uL (3.50-5.40) Hemoglobin 10.3 g/dL (12.0-15.5) Hematocrit 34.5 % (36.0-47.0) Mean Corpuscular Volume 111 fL (79-100) Mean Corpuscular Hemoglobin 33 pg (25-35) Mean Corpuscular Hemoglobin Concent 30 g/dL (31-37) Red Cell Distribution Width 22.5 % (11.5-14.5) Platelet Count 236 x10^3/uL (140-400) Neutrophils (%) (Auto) 92 % (31-73) Lymphocytes (%) (Auto) 3 % (24-48) Monocytes (%) (Auto) 5 % (0-9) Eosinophils (%) (Auto) 0 % (0-3) Basophils (%) (Auto) 0 % (0-3) Neutrophils # (Auto) 13.8 x10^3/uL (1.8-7.7) Lymphocytes # (Auto) 0.5 x10^3/uL (1.0-4.8) Monocytes # (Auto) 0.7 x10^3/uL (0.0-1.1) Eosinophils # (Auto) 0.0 x10^3/uL (0.0-0.7) Basophils # (Auto) 0.0 x10^3/uL (0.0-0.2) Sodium Level 146 mmol/L (136-145) Potassium Level 4.6 mmol/L (3.5-5.1) Chloride Level 115 mmol/L (98-107) Carbon Dioxide Level 11 mmol/L (21-32) Anion Gap 20 (6-14) Blood Urea Nitrogen 38 mg/dL (7-20) Creatinine 1.4 mg/dL (0.6-1.0) Estimated GFR (Cockcroft-Gault) 36.4 BUN/Creatinine Ratio 27 (6-20) Glucose Level 152 mg/dL (70-99) Calcium Level 9.4 mg/dL (8.5-10.1) Total Bilirubin 0.4 mg/dL (0.2-1.0) Aspartate Amino Transf (AST/SGOT) 31 U/L (15-37) Alanine Aminotransferase (ALT/SGPT) 21 U/L (14-59) Alkaline Phosphatase 66 U/L (46-116) Total Protein 6.4 g/dL (6.4-8.2) Albumin 3.0 g/dL (3.4-5.0) Albumin/Globulin Ratio 0.9 (1.0-1.7) Lipase 615 U/L (73-393) Allergies: Coded Allergies: MARQUIS Inhibitors (Verified Allergy, Unknown, 03/20/20) Sulfa (Sulfonamide Antibiotics) (Verified Allergy, Unknown, 03/20/20) ciprofloxacin (Verified Allergy, Unknown, 03/20/20) glimepiride (Verified Allergy, Unknown, 03/20/20) levofloxacin (Verified Allergy, Unknown, 03/20/20) nitroglycerin (Verified Allergy, Unknown, 03/20/20) Medications: Current Medications Medications (Trade) Dose Ordered Sig/Bridget Route PRN Reason Start Time Stop Time Status Last Admin Dose Admin Sodium Chloride 1,000 ml @ 75 mls/hr [id number] IV 03/20/20 18:00 03/20/20 18:28 Vancomycin HCl (Vanco Per Pharmacy) 1 each PRN DAILY PRN MC SEE COMMENTS 03/20/20 18:00 03/20/20 19:11 Piperacillin Sod/ Tazobactam Sod 2.25 gm/Sodium Chloride 50 ml @ 100 mls/hr Q6HRS IV 03/20/20 19:00 03/21/20 05:32 Vancomycin HCl 1.25 gm/Sodium Chloride 250 ml @ 167 mls/hr 1X ONCE IV 03/20/20 20:00 03/20/20 21:29 DC 03/20/20 20:38 Albuterol/ Ipratropium (Duoneb) 3 ml RTQID NEB 03/21/20 08:15 03/21/20 08:47 Budesonide (Pulmicort) 0.5 mg RTBID NEB 03/21/20 08:15 03/21/20 08:47 Sodium Bicarbonate (Sodium Bicarb Adult 8.4% Syr) 50 meq 1X ONCE IV 03/21/20 08:15 03/21/20 08:32 DC 03/21/20 08:48 PE: GEN: ill HEENT: Atraumatic, PERRL LUNGS: clear but tachypneic HEART: tachycardic ABD: quiet, soft, non-tender EXTREMITY: cool SKIN: No rashes, no jaundice NEURO/PSYCH: confused A/P: A/P: Abd pain, ?diarrhea, AMS, resp failure Leukocytosis, UTI, macrocytic anemia Pancreatitis, cholelithiasis - benign abd exam, normal LFTs, lipase improved ?h/o GERD ?CRC screen H/o C Diff -- Plans to transfer to ICU. Treat UTI, would keep NPO for now. Check anemia parameters for completeness. Stool studies if able. Dr. Woods wonders about colitis/ischemia - no mention of abnormal colon findings on CT report - will review w/ Dr. Shaffer. MARY GUEVARA Mar 21, 2020 09:09
--- NOTE | 2020-03-21 09:45 | CONS ---
DATE OF CONSULTATION: 03/21/2020 PULMONARY CONSULTATION ATTENDING PHYSICIAN: Evangelina Hinson III, DO REASON FOR CONSULTATION: Sepsis. HISTORY OF PRESENT ILLNESS: The patient is a 80-year-old female, who was seen by her primary care physician for abnormal labs and unintentional weight loss. She lost about 30 pounds. She was found to have hyponatremia, hypokalemia and also had some diarrhea. This was going on for almost 2 months. The patient was hospitalized at [facility] and then the workup revealed that she had evidence of UTI. She also had increased lipase levels. Her chest x-ray was clear. She was transferred to our facility on the 5th floor. I was called this morning with her respiratory rate in the 40s. She is lethargic, but she is arousable. She is answering questions. She states no to tobacco use and does not have any alcohol use. She is currently on oxygen at 2 liters. Saturations are in the mid 90s, but her respirations are in the 30s and she is sweating. I have been asked to see her for further evaluation. PAST MEDICAL HISTORY: Significant for history of C. diff in September, history of gallstone, history of bronchial asthma, hypertension, hyperlipidemia, gastroesophageal reflux disease, type 2 diabetes, pulmonary hypertension, Sjogren syndrome, squamous cell cancer of the skin, basal cell carcinoma. PAST SURGICAL HISTORY: Cystoscopy with bladder biopsy, history of hysterectomy, salivary gland surgery, and colonoscopy. FAMILY HISTORY: Noncontributory to lungs. SOCIAL HISTORY: Nonsmoker. No history of alcohol use. REVIEW OF SYSTEMS: Ten-point system obtained. Pertinent positives discussed in my history of present illness, otherwise noncontributory. All systems that were negative were reviewed as well. MEDICATIONS: Reviewed, including broad-spectrum antibiotics. PHYSICAL EXAMINATION: GENERAL: She is tachypneic. She is in respiratory distress. VITAL SIGNS: Blood pressure 162/87, afebrile, pulse ox 96% on 2.5 liters. NECK: Supple. LUNGS: With diminished breath sounds. No crackles. CARDIOVASCULAR: With a regular rate and rhythm. ABDOMEN: Soft, nontender. EXTREMITIES: With no pitting edema. LABORATORY DATA: Reviewed. White cell count 15.0, hemoglobin 10.3 and platelets are 236. Her bicarb is 11. BUN 36 and a creatinine of 1.4. Her lipase is 615. IMPRESSION: 1. Acute respiratory failure secondary to sepsis. 2. Sepsis, likely contribution could be urinary tract infection versus recurrent Clostridium difficile colitis/ Ischemic colitis Although, lipase is elevated, but abdominal exam is benign and pancreatitis would be in the differential diagnosis as well. 3. No significant tobacco history. 4. Severe metabolic acidosis secondary to sepsis. 5. Acute kidney injury. 6. Increased lipase level. GI is following. 7. Abnormal CT abdomen and pelvis with haziness in the peripancreatic fat, nonspecific. Right upper lobe and left lower lobe partly solid nodules, which were 6 mm in size and could be inflammatory. 8. Cholelithiasis. RECOMMENDATIONS: 1. I have discussed with the patient, RN and Dr. Campbell. She is critically ill, needs to be transferred to ICU. 2. We will add BiPAP to help her work of breathing. 3. Amp of bicarb. 4. IV hydration. 5. Broad-spectrum antibiotics were initiated and needs to continue. 6. Follow GI and General Surgery recommendations. 7. Follow all cultures. 8. Stool for Clostridium difficile. she has been suffering from it since many months. 9. Discuss with Dr. Campbell, discuss with RN and RT. d/w entire family in detail. critical illness explained. Full code for now CRITICAL CARE TIME: 39 minutes, including review of the chart, labs and imaging studies. MICHAEL ROMERO MD DR: CLARY/ankit JOB#: [id number] / [id number] MATT
--- NOTE | 2020-03-21 09:56 | NUR ---
Pt transferred to ICU and will need new orders to initiate therapy services. Please write eval and treat orders once medically stable. Addendum: 03/21/20 at 0956 by LUX MOREJON PT Amended: Links added.
--- NOTE | 2020-03-21 10:29 | NUR ---
Rec'd in ICU 108 placed on Bipap40%. Pt awake and folllos commands. BP ok but HR 119 RR32 No fever. Iv patent Rt hand. Bernard placed with creamy return sent for CX. Dr Woods here talked with family. Right now pt is no defib, no compression Yes to intubation and meds. Family is further deciding about how more agressive to be. Will placed another IV . NS infusing.
[2020-03-21 10:55] LABS: % LYMPHS 2 % (24-48); % MONOS 4 % (0-10); % SEGS 94 % (35-66); ANISOCYTOSIS MOD; OVALOCYTES FEW; PLT ESTIMATE ADEQUATE (ADEQUATE); TARGET CELLS OCC; TEAR DROP CELLS OCC
[2020-03-21 10:56] LABS: BURR CELLS OCC; POLYCHROMASIA MOD
[2020-03-21] MEDS: VANCOMYCIN PER PHARMACY MC PRN (11:32)
[2020-03-21] MEDS ORDERED: FURO20TA3 PO (11:34)
[2020-03-21] MEDS ORDERED: TROS20TA2 PO (11:34)
[2020-03-21] MEDS ORDERED: ASCO500C PO (11:34)
[2020-03-21] MEDS ORDERED: GEMF600T8 PO (11:34)
[2020-03-21] MEDS ORDERED: METH1TAB13 PO (11:34)
[2020-03-21] MEDS ORDERED: METF500T16 PO (11:34)
[2020-03-21] MEDS ORDERED: CEVI30CA PO (11:34)
[2020-03-21] MEDS ORDERED: SILD20TA4 PO (11:34)
[2020-03-21] MEDS ORDERED: AMLO2.5T5 PO (11:34)
[2020-03-21] MEDS ORDERED: PANT40TA77 PO (11:34)
[2020-03-21] MEDS ORDERED: METO25TA4 PO (11:34)
[2020-03-21] MEDS ORDERED: ATOR20TA58 PO (11:34)
--- NOTE | 2020-03-21 12:39 | NUR ---
SW following. Spoke with RN and reviewed chart. Pt on IV Meropenem. Pt on a BIPAP/CPAP. Pt is being transferred to the ICU. BING Martinez will follow this pt.
--- NOTE | 2020-03-21 13:26 | CONS ---
DATE OF CONSULTATION: 03/21/2020 REFERRING PHYSICIAN: Evangelina Hinson, III, DO REASON FOR CONSULTATION: Antibiotic management. HISTORY OF PRESENT ILLNESS: A 80-year-old female, who had been seen by her primary care physician for chronic diarrhea, unintentional weight loss, weakness. On last Wednesday, stool studies were sent per family at bedside. Results are not available at this time. The patient presented to [facility] on 03/20/2020 with complaints of abdominal pain. History is very limited. The patient has history of recurrent C. diff. Most recent treatment was in 09/2019. She continues to have generalized abdominal pain and weakness. Her p.o. intake had been poor. The patient also has a history of recurrent UTI. The patient was found to have pyuria with working diagnosis of UTI. She also had increased lipase levels. A chest x-ray was clear. She was transferred to [facility] for further evaluation and treatment from GI team. She became hypoxic this a.m. with respiratory acidosis, lethargy, and weakness. She is currently on BiPAP. History obtained from chart and medical staff. She had a CT done at [facility], which showed ill-defined haziness in the peripancreatic fat, nonspecific, but can be seen with hepatitis, right upper lobe and left lower lobe solid nodules. This could represent focal areas of infection/inflammation, including fungal and potential aspiration, underlying neoplasm cannot be excluded, indeterminate left renal hypodense mass, possibly a cyst with proteinaceous debris, cholelithiasis. CT head showed no acute intracranial abnormality. The patient received IV fluid bolus at [facility] along with 2 grams IV ceftriaxone. Upon presentation here, Dr. Hinson has started the patient on Zosyn. ID consult has been requested for further evaluation and treatment. PAST MEDICAL HISTORY: History of recurrent C. diff weight loss, chronic abdominal pain, history of UTI, history of Sjogren's, hypertension, hyperlipidemia, GERD, type 2 diabetes, pulmonary hypertension, squamous cell carcinoma of the skin, basal cell carcinoma. PAST SURGICAL HISTORY: Cystoscopy with bladder biopsy, history of hysterectomy, salivary gland surgery, colonoscopy. FAMILY HISTORY: As per HPI. SOCIAL HISTORY: Nonsmoker. No alcohol. . Daughter and are at bedside. REVIEW OF SYSTEMS: Unable to obtain, limited per above. CURRENT MEDICATIONS: Zosyn, IV vancomycin, Prinzide, albuterol, morphine, Zofran. PHYSICAL EXAMINATION: VITAL SIGNS: Temperature 96.9, pulse 119, respiratory rate 32, blood pressure 162/87, oxygen saturation 98% on BiPAP. GENERAL: Lethargic, weak-appearing female, on BiPAP. HEENT: Anicteric. NECK: Supple. LUNGS: Decreased breath sounds at the bases. HEART: S1, S2. No gallops or murmurs. ABDOMEN: Soft, nontender, mildly distended. GENITOURINARY: Bernard in place. EXTREMITIES: No edema, no cyanosis. DERMATOLOGIC: Warm, dry. No generalized rash. Multiple bruises. CENTRAL NERVOUS SYSTEM: Alert, awake, extremely weak and lethargic. PSYCHIATRIC: Cooperative. LABORATORY DATA: WBC 15, hemoglobin 10.3, hematocrit 34.5, platelets 236. Sodium 146, potassium 4.6, chloride 115, bicarb 11, BUN 38, creatinine 1.4, glucose 27. Iron studies noted. LFTs noted. Lipase 615. UA shows [id number]-mc-count wbc's, large blood. DIAGNOSTICS: CT abdomen and pelvis as above. Stool studies pending. IMPRESSION: 1. Leukocytosis. 2. Urinary tract infection. 3. Abdominal pain. 4. History of recurrent Clostridium difficile. 5. Altered mental status. 6. Acute hypoxic respiratory failure, on BiPAP. 7. Anemia. 8. Pancreatitis, cholelithiasis. 9. Left renal mass. 10. Weight loss. 11. History of Sjogren's. 12. Diabetes mellitus. 13. Severe metabolic acidosis. RECOMMENDATIONS: 1. Discontinue IV vancomycin and Zosyn. 2. Start Merrem and Zyvox. 3. Await stool studies done with primary care last Wednesday. 4. Start empiric p.o. vancomycin with history of recurrent C. difficile 5. Follow up GI bacterial panel and C. diff PCR. 6. Follow up urine cultures. 7. Obtain blood cultures. 8. Follow up cultures from [facility]. 9. Follow up cultures from outside MD office. 10. Critically ill. 11. Prognosis is poor. Discussed with and daughter at bedside. Discussed with RN. Discussed with Dr. Woods. Thank you for allowing me to participate in this patient's care. If you have any questions, do not hesitate to contact me. INES AGUIRRE MD DR: ALEXANDRE/ankit JOB#: [id number] / [id number] MATT
[2020-03-21] MEDS: VANCOMYCIN 125 MG/2.5 ML ORAL SOLUTION. PO SCH ×3 (13:52→21:48)
[2020-03-21] MEDS: amLODIPine BESYLATE 5 MG TABLET PO SCH (15:30)
--- NOTE | 2020-03-21 16:23 | NUR ---
Pt has rested well this afternoon on Bipap removed short period od time for sip H2O and oral Vanc. Family at bedside. VSS unchanged still tachy at 114. BP ok. No stool. No fever. Pt sleeps on and off.
[2020-03-21] MEDS: HEPARIN for SUB-Q USE 5,000 UNIT/ML VIAL. SQ SCH ×2 (16:59→21:50)
[2020-03-21] MEDS: MEROPENEM 500 MG in IV NORMAL SALINE 50ML 50 ML IV SCH (20:54)
[2020-03-21] MEDS ORDERED: FAMOTIDINE 20 MG/2 ML VIAL IVP SCH (21:00)
[2020-03-21] MEDS ORDERED: CEVIMELINE HCL 30 MG PO SCH (21:00)
[2020-03-21] MEDS: METOPROLOL TART IMMED RELEASE 25 MG TABLET. PO SCH ×2 (21:00→21:48)
[2020-03-21] MEDS: ATORVASTATIN CALCIUM 20 MG TABLET PO SCH (21:00)
[2020-03-21] MEDS: ASCORBIC ACID 500 MG TABLET PO SCH (21:00)
[2020-03-21] MEDS: METOPROLOL TARTRATE 5 MG/5 ML VIAL. IVP SCH (22:35)
[2020-03-22] VITALS (23 sets, daily range): BP systolic 121–189; BP diastolic 58–102
[2020-03-22] MEDS: HEPARIN for SUB-Q USE 5,000 UNIT/ML VIAL. SQ SCH ×3 (06:07→21:21)
--- NOTE | 2020-03-22 08:01 | PDOC ---
Infectious Disease Note Subjective: Subjective Patient on BiPAP Off pressors last night No BM Afebrile Vital Signs: Vital Signs Vital Signs Date Time Temp Pulse Resp B/P (MAP) Pulse Ox O2 Delivery O2 Flow Rate FiO2 03/22/20 06:00 103 32 146/66 (92) 98 BiPAP/CPAP 03/22/20 04:00 98.9 98.9 03/21/20 08:45 2.5 Physical Exam: PHYSICAL EXAM GENERAL: Lethargic, weak-appearing female, on BiPAP. HEENT: Anicteric. NECK: Supple. LUNGS: Decreased breath sounds at the bases. HEART: S1, S2. No gallops or murmurs. ABDOMEN: Soft, nontender, mildly distended. GENITOURINARY: Bernard in place. EXTREMITIES: No edema, no cyanosis. DERMATOLOGIC: Warm, dry. No generalized rash. Multiple bruises. CENTRAL NERVOUS SYSTEM: Alert, awake, extremely weak and lethargic. Medications: Inpatient Meds: Current Medications Medications (Trade) Dose Ordered Sig/Bridget Start Time Stop Time Status Last Admin Dose Admin Albuterol Sulfate (Ventolin Neb Soln) 2.5 mg PRN Q4HRS PRN 03/21/20 08:15 Albuterol/ Ipratropium (Duoneb) 3 ml RTQID 03/21/20 08:15 03/21/20 20:30 3 ML Amlodipine Besylate (Norvasc) 2.5 mg DAILY 03/21/20 15:30 Ascorbic Acid (Vitamin C) 500 mg BID 03/21/20 21:00 Atorvastatin Calcium (Lipitor) 20 mg QHS 03/21/20 21:00 Budesonide (Pulmicort) 0.5 mg RTBID 03/21/20 08:15 03/21/20 20:30 0.5 MG Famotidine (Pepcid Vial) 20 mg QHS 03/21/20 21:00 03/21/20 20:55 20 MG Heparin Sodium (Porcine) (Heparin Sodium) 5,000 unit Q8HRS 03/21/20 15:30 03/22/20 06:07 5,000 UNIT Linezolid/Dextrose 300 ml @ 300 mls/hr Q12HR 03/21/20 21:00 03/21/20 21:47 300 MLS/HR Meropenem 500 mg/ Sodium Chloride 50 ml @ 100 mls/hr Q12HR 03/21/20 21:00 03/21/20 20:54 100 MLS/HR Metoprolol Tartrate (Lopressor Vial) 10 mg BID 03/21/20 22:30 03/21/20 22:35 10 MG Metoprolol Tartrate (Lopressor) 25 mg BID 03/21/20 21:00 03/21/20 22:19 DC Morphine Sulfate (Morphine Sulfate) 2 mg PRN Q2HR PRN 03/20/20 18:00 Non-Formulary Medication (Cevimeline Hcl ) 30 mg TID 03/21/20 21:00 Ondansetron HCl (Zofran) 4 mg PRN Q6HRS PRN 03/20/20 18:00 Piperacillin Sod/ Tazobactam Sod (Zosyn Per Pharmacy) 1 each PRN DAILY PRN 03/20/20 18:00 03/21/20 12:07 DC Piperacillin Sod/ Tazobactam Sod 2.25 gm/Sodium Chloride 50 ml @ 100 mls/hr Q6HRS 03/20/20 19:00 03/21/20 12:04 DC 03/21/20 05:32 100 MLS/HR Sodium Bicarbonate (Sodium Bicarb Adult 8.4% Syr) 50 meq 1X ONCE 03/21/20 08:15 03/21/20 08:32 DC 03/21/20 08:48 50 MEQ Sodium Chloride 1,000 ml @ 75 mls/hr [id number] 03/20/20 18:00 03/21/20 20:54 75 MLS/HR Vancomycin HCl (Vanco Per Pharmacy) 1 each PRN DAILY PRN 03/20/20 18:00 03/21/20 12:08 DC 03/21/20 11:32 1 EACH Vancomycin HCl (Vancomycin Trough Level) 1 each 1X ONCE 03/24/20 19:30 03/21/20 12:08 DC Vancomycin HCl (Vancomycin Oral Solution) 125 mg [id number] 03/21/20 13:00 03/21/20 21:48 125 MG Vancomycin HCl 1.25 gm/Sodium Chloride 250 ml @ 167 mls/hr 1X ONCE 03/20/20 20:00 03/20/20 21:29 DC 03/20/20 20:38 167 MLS/HR Vancomycin HCl 1 gm/Sodium Chloride 250 ml @ 250 mls/hr Q48H 03/22/20 20:00 03/21/20 12:04 DC Labs: Lab Laboratory Tests Test 03/21/20 08:40 03/21/20 14:43 03/21/20 23:29 O2 Saturation 93 % (92-99) Arterial Blood pH 7.19 (7.35-7.45) Arterial Blood pCO2 at Patient Temp 18 mmHg (35-46) Arterial Blood pO2 at Patient Temp 85 mmHg (65-108) Arterial Blood HCO3 7 mmol/L (21-28) Arterial Blood Base Excess -20 mmol/L (-3-3) FiO2 30 Glucose (Fingerstick) 150 mg/dL (70-99) 191 mg/dL (70-99) Objective: Assessment: 1. Leukocytosis. 2. Urinary tract infection. 3. Abdominal pain. 4. History of recurrent Clostridium difficile. 5. Altered mental status. 6. Acute hypoxic respiratory failure, on BiPAP. 7. Anemia. 8. Pancreatitis, cholelithiasis. 9. Left renal mass. 10. Weight loss. 11. History of Sjogren's. 12. Diabetes mellitus. 13. Severe metabolic acidosis. Plan: Plan of Care Continue Merrem and Zyvox Continue p.o. vancomycin Follow-up GI panel and C. difficile PCR if patient has diarrhea Follow-up labs and cultures Follow-up cultures from [facility] Stool studies from outside MD office Critically ill Discussed with nursing staff INES AGUIRRE MD Mar 22, 2020 08:01
[2020-03-22] MEDS: BUDESONIDE 0.5 MG/2 ML NEBU. NEB SCH ×2 (08:09→19:58)
[2020-03-22] MEDS: IPRATRPIUM/ALBUTEROL 0.5/2.5MG 3 ML NEBU. NEB SCH ×4 (08:09→19:58)
[2020-03-22 08:53] LABS: BASE EXCESS ABG -19 mmol/L (-3-3); HCO3 ABG 8 mmol/L (21-28); PO2 ABG 111 mmHg (65-108); SAT O2 ABG 96 % (92-99)
[2020-03-22 08:56] LABS: ALBUMIN 2.8 g/dL (3.4-5.0); CALCIUM 8.2 mg/dL (8.5-10.1); CREATININE 1.6 mg/dL (0.6-1.0); GFR 31.2; POTASSIUM 4.4 mmol/L (3.5-5.1); TOTAL BILIRUBIN 0.4 mg/dL (0.2-1.0); TOTAL PROTEIN 5.7 g/dL (6.4-8.2)
[2020-03-22] MEDS: amLODIPine BESYLATE 5 MG TABLET PO SCH (09:00)
[2020-03-22] MEDS: VANCOMYCIN 125 MG/2.5 ML ORAL SOLUTION. PO SCH ×4 (09:00→21:00)
[2020-03-22] MEDS: ASCORBIC ACID 500 MG TABLET PO SCH ×2 (09:00→21:00)
[2020-03-22] MEDS: MEROPENEM 500 MG in IV NORMAL SALINE 50ML 50 ML IV SCH ×2 (09:38→21:21)
[2020-03-22] MEDS: IV NORMAL SALINE 1000ML BAG 1,000 ML IV SCH ×2 (09:38→23:20)
[2020-03-22] MEDS: METOPROLOL TARTRATE 5 MG/5 ML VIAL. IVP SCH ×2 (09:51→21:20)
--- NOTE | 2020-03-22 09:51 | PDOC ---
PULMONARY PROGRESS NOTES DATE: 03/22/20 TIME: 09:47 Subjective remains lethargic,on BIPAP very acidotic Vitals Vital Signs Date Time Temp Pulse Resp B/P (MAP) Pulse Ox O2 Delivery O2 Flow Rate FiO2 03/22/20 08:30 99 BiPAP/CPAP 03/22/20 06:00 103 32 146/66 (92) 03/22/20 04:00 98.9 98.9 03/21/20 08:45 2.5 General: Lethargic Lungs: Other (decrease bs) Cardiovascular: S1 Abdomen: Soft, Non-tender Extremities: No Edema Skin: Warm Labs Laboratory Tests Test 03/20/20 17:50 03/20/20 20:35 03/21/20 06:00 03/21/20 07:30 Urine Collection Type Unknown Urine Color Yellow Urine Clarity Cloudy Urine pH 5.5 (<5.0-8.0) Urine Specific [place] 1.020 (1.000-1.030) Urine Protein 100 mg/dL (NEG-TRACE) Urine Glucose (UA) Negative mg/dL (NEG) Urine Ketones (Stick) Trace mg/dL (NEG) Urine Blood Large (NEG) Urine Nitrite Positive (NEG) Urine Bilirubin Negative (NEG) Urine Urobilinogen Dipstick 0.2 mg/dL (0.2 mg/dL) Urine Leukocyte Esterase Large (NEG) Urine RBC Occ /HPF (0-2) Urine WBC Tntc /HPF (0-4) Urine Squamous Epithelial Cells Few /LPF Urine Bacteria Many /HPF (0-FEW) Urine Mucus Mod /LPF Glucose (Fingerstick) 134 mg/dL (70-99) 143 mg/dL (70-99) White Blood Count 15.0 x10^3/uL (4.0-11.0) Red Blood Count 3.12 x10^6/uL (3.50-5.40) Hemoglobin 10.3 g/dL (12.0-15.5) Hematocrit 34.5 % (36.0-47.0) Mean Corpuscular Volume 111 fL (79-100) Mean Corpuscular Hemoglobin 33 pg (25-35) Mean Corpuscular Hemoglobin Concent 30 g/dL (31-37) Red Cell Distribution Width 22.5 % (11.5-14.5) Platelet Count 236 x10^3/uL (140-400) Neutrophils (%) (Auto) 92 % (31-73) Lymphocytes (%) (Auto) 3 % (24-48) Monocytes (%) (Auto) 5 % (0-9) Eosinophils (%) (Auto) 0 % (0-3) Basophils (%) (Auto) 0 % (0-3) Neutrophils # (Auto) 13.8 x10^3/uL (1.8-7.7) Lymphocytes # (Auto) 0.5 x10^3/uL (1.0-4.8) Monocytes # (Auto) 0.7 x10^3/uL (0.0-1.1) Eosinophils # (Auto) 0.0 x10^3/uL (0.0-0.7) Basophils # (Auto) 0.0 x10^3/uL (0.0-0.2) Segmented Neutrophils % 94 % (35-66) Lymphocytes % 2 % (24-48) Monocytes % 4 % (0-10) Platelet Estimate Adequate (ADEQUATE) Polychromasia Mod Anisocytosis Mod Macrocytosis Mod Target Cells Occ Tear Drop Cells Occ Ovalocytes Few [employer] Cells Occ Sodium Level 146 mmol/L (136-145) Potassium Level 4.6 mmol/L (3.5-5.1) Chloride Level 115 mmol/L (98-107) Carbon Dioxide Level 11 mmol/L (21-32) Anion Gap 20 (6-14) Blood Urea Nitrogen 38 mg/dL (7-20) Creatinine 1.4 mg/dL (0.6-1.0) Estimated GFR (Cockcroft-Gault) 36.4 BUN/Creatinine Ratio 27 (6-20) Glucose Level 152 mg/dL (70-99) Calcium Level 9.4 mg/dL (8.5-10.1) Iron Level 17 ug/dL (50-170) Total Iron Binding Capacity 199 ug/dL (250-450) Iron Saturation 9 % (15-34) Total Bilirubin 0.4 mg/dL (0.2-1.0) Aspartate Amino Transf (AST/SGOT) 31 U/L (15-37) Alanine Aminotransferase (ALT/SGPT) 21 U/L (14-59) Alkaline Phosphatase 66 U/L (46-116) Total Protein 6.4 g/dL (6.4-8.2) Albumin 3.0 g/dL (3.4-5.0) Albumin/Globulin Ratio 0.9 (1.0-1.7) Lipase 615 U/L (73-393) Vitamin B12 Level 920 pg/mL (247-911) Test 03/21/20 08:40 03/21/20 14:43 03/21/20 23:29 03/22/20 08:10 O2 Saturation 93 % (92-99) Arterial Blood pH 7.19 (7.35-7.45) Arterial Blood pCO2 at Patient Temp 18 mmHg (35-46) Arterial Blood pO2 at Patient Temp 85 mmHg (65-108) Arterial Blood HCO3 7 mmol/L (21-28) Arterial Blood Base Excess -20 mmol/L (-3-3) FiO2 30 Glucose (Fingerstick) 150 mg/dL (70-99) 191 mg/dL (70-99) Sodium Level 149 mmol/L (136-145) Potassium Level 4.4 mmol/L (3.5-5.1) Chloride Level 119 mmol/L (98-107) Carbon Dioxide Level 9 mmol/L (21-32) Anion Gap 21 (6-14) Blood Urea Nitrogen 49 mg/dL (7-20) Creatinine 1.6 mg/dL (0.6-1.0) Estimated GFR (Cockcroft-Gault) 31.2 BUN/Creatinine Ratio 31 (6-20) Glucose Level 188 mg/dL (70-99) Calcium Level 8.2 mg/dL (8.5-10.1) Total Bilirubin 0.4 mg/dL (0.2-1.0) Aspartate Amino Transf (AST/SGOT) 35 U/L (15-37) Alanine Aminotransferase (ALT/SGPT) 24 U/L (14-59) Alkaline Phosphatase 65 U/L (46-116) Total Protein 5.7 g/dL (6.4-8.2) Albumin 2.8 g/dL (3.4-5.0) Albumin/Globulin Ratio 1.0 (1.0-1.7) Laboratory Tests Test 03/21/20 14:43 03/21/20 23:29 03/22/20 08:10 Glucose (Fingerstick) 150 mg/dL (70-99) 191 mg/dL (70-99) Sodium Level 149 mmol/L (136-145) Potassium Level 4.4 mmol/L (3.5-5.1) Chloride Level 119 mmol/L (98-107) Carbon Dioxide Level 9 mmol/L (21-32) Anion Gap 21 (6-14) Blood Urea Nitrogen 49 mg/dL (7-20) Creatinine 1.6 mg/dL (0.6-1.0) Estimated GFR (Cockcroft-Gault) 31.2 BUN/Creatinine Ratio 31 (6-20) Glucose Level 188 mg/dL (70-99) Calcium Level 8.2 mg/dL (8.5-10.1) Total Bilirubin 0.4 mg/dL (0.2-1.0) Aspartate Amino Transf (AST/SGOT) 35 U/L (15-37) Alanine Aminotransferase (ALT/SGPT) 24 U/L (14-59) Alkaline Phosphatase 65 U/L (46-116) Total Protein 5.7 g/dL (6.4-8.2) Albumin 2.8 g/dL (3.4-5.0) Albumin/Globulin Ratio 1.0 (1.0-1.7) Medications Active Scripts Medications Dose Route/Sig Max Daily Dose Days Date Category Methenamine Mandelate 1 Gm Tablet 1 Tab PO BID 30 03/21/20 Reported Metformin Hcl 500 Mg Tablet 500 Mg PO TID 03/21/20 Reported Cevimeline Hcl 30 Mg Capsule 30 Mg PO TID 03/21/20 Reported Vitamin C (Ascorbic Acid) 500 Mg Capsule.er 500 Mg PO BID 03/21/20 Reported Gemfibrozil 600 Mg Tablet 1 Tab PO DAILY 03/21/20 Reported Furosemide 20 Mg Tablet 1 Tab PO DAILY 03/21/20 Reported Atorvastatin Calcium 20 Mg Tablet 1 Tab PO DAILY 03/21/20 Reported Sildenafil (Sildenafil Citrate) 20 Mg Tablet 20 Mg PO TID 03/21/20 Reported Amlodipine Besylate 2.5 Mg Tablet 2.5 Mg PO DAILY 03/21/20 Reported Trospium Chloride 20 Mg Tablet 20 Mg PO BID 03/21/20 Reported Metoprolol Tartrate 25 Mg Tablet 1 Tab PO BID 03/21/20 Reported Protonix (Pantoprazole Sodium) 40 Mg Tablet.dr 40 Mg PO DAILYAC 03/21/20 Reported Impression . 1. Acute respiratory failure secondary to sepsis. 2. Sepsis, likely contribution could be ischemic bowel /urinary tract infection .she has Clostridium difficile colitis/now likely Ischemic colitis Although, lipase is elevated, but abdominal exam is benign and pancreatitis would be less likely in the differential diagnosis 3. No significant tobacco history. 4. Severe metabolic acidosis secondary to sepsis./ suspected ischemic bowel 5. Acute kidney injury. 6. Increased lipase level. GI is following. 7. Abnormal CT abdomen and pelvis with haziness in the peripancreatic fat, nonspecific. Right upper lobe and left lower lobe partly solid nodules, which were 6 mm in size and could be inflammatory. 8. Cholelithiasis. Plan . 1. I have discussed with the patients , RN . she remains critically ill 2. BiPAP to help her work of breathing. 3. Amp of bicarb.and start drip 4. IV hydration. 5. Broad-spectrum antibiotics per ID 6. Follow GI and General Surgery recommendations.d/w surgery SURVEY MANAGER 7. Follow all cultures. 8. Stool for Clostridium difficile. she has been suffering from it since many months. 9. repeat ct abdomen/pelvis 10. repeat lipase ans lactic acid d/w entire family in detail. critical illness explained. Full code for now cct 35 min MICHAEL ROMERO MD Mar 22, 2020 09:51
--- NOTE | 2020-03-22 09:56 | PDOC ---
RADHIKA BAKER CHURCH SUPERVISOR 03/22/20 0956: SURGICAL PROGRESS NOTE DATE: 03/22/20 TIME: 09:54 Subjective family present-diarrhea x 2 weeks--c diff wednesday was negative Vital Signs Vital Signs Date Time Temp Pulse Resp B/P (MAP) Pulse Ox O2 Delivery O2 Flow Rate FiO2 03/22/20 09:51 112 153/69 03/22/20 08:30 99 BiPAP/CPAP 03/22/20 06:00 32 03/22/20 04:00 98.9 98.9 03/21/20 08:45 2.5 I&O Intake and Output 03/22/20 06:59 Intake Total 1640 ml Output Total 730 ml Balance 910 ml Intake Oral 0 ml IV Total 515 ml Other 1125 ml Output Urine Total 730 ml General: Other (not responsive) Lungs: Other (bipap) Abdomen: Soft Labs Laboratory Tests Test 03/20/20 17:50 03/20/20 20:35 03/21/20 06:00 03/21/20 07:30 Urine Collection Type Unknown Urine Color Yellow Urine Clarity Cloudy Urine pH 5.5 (<5.0-8.0) Urine Specific [place] 1.020 (1.000-1.030) Urine Protein 100 mg/dL (NEG-TRACE) Urine Glucose (UA) Negative mg/dL (NEG) Urine Ketones (Stick) Trace mg/dL (NEG) Urine Blood Large (NEG) Urine Nitrite Positive (NEG) Urine Bilirubin Negative (NEG) Urine Urobilinogen Dipstick 0.2 mg/dL (0.2 mg/dL) Urine Leukocyte Esterase Large (NEG) Urine RBC Occ /HPF (0-2) Urine WBC Tntc /HPF (0-4) Urine Squamous Epithelial Cells Few /LPF Urine Bacteria Many /HPF (0-FEW) Urine Mucus Mod /LPF Glucose (Fingerstick) 134 mg/dL (70-99) 143 mg/dL (70-99) White Blood Count 15.0 x10^3/uL (4.0-11.0) Red Blood Count 3.12 x10^6/uL (3.50-5.40) Hemoglobin 10.3 g/dL (12.0-15.5) Hematocrit 34.5 % (36.0-47.0) Mean Corpuscular Volume 111 fL (79-100) Mean Corpuscular Hemoglobin 33 pg (25-35) Mean Corpuscular Hemoglobin Concent 30 g/dL (31-37) Red Cell Distribution Width 22.5 % (11.5-14.5) Platelet Count 236 x10^3/uL (140-400) Neutrophils (%) (Auto) 92 % (31-73) Lymphocytes (%) (Auto) 3 % (24-48) Monocytes (%) (Auto) 5 % (0-9) Eosinophils (%) (Auto) 0 % (0-3) Basophils (%) (Auto) 0 % (0-3) Neutrophils # (Auto) 13.8 x10^3/uL (1.8-7.7) Lymphocytes # (Auto) 0.5 x10^3/uL (1.0-4.8) Monocytes # (Auto) 0.7 x10^3/uL (0.0-1.1) Eosinophils # (Auto) 0.0 x10^3/uL (0.0-0.7) Basophils # (Auto) 0.0 x10^3/uL (0.0-0.2) Segmented Neutrophils % 94 % (35-66) Lymphocytes % 2 % (24-48) Monocytes % 4 % (0-10) Platelet Estimate Adequate (ADEQUATE) Polychromasia Mod Anisocytosis Mod Macrocytosis Mod Target Cells Occ Tear Drop Cells Occ Ovalocytes Few Brussels Cells Occ Sodium Level 146 mmol/L (136-145) Potassium Level 4.6 mmol/L (3.5-5.1) Chloride Level 115 mmol/L (98-107) Carbon Dioxide Level 11 mmol/L (21-32) Anion Gap 20 (6-14) Blood Urea Nitrogen 38 mg/dL (7-20) Creatinine 1.4 mg/dL (0.6-1.0) Estimated GFR (Cockcroft-Gault) 36.4 BUN/Creatinine Ratio 27 (6-20) Glucose Level 152 mg/dL (70-99) Calcium Level 9.4 mg/dL (8.5-10.1) Iron Level 17 ug/dL (50-170) Total Iron Binding Capacity 199 ug/dL (250-450) Iron Saturation 9 % (15-34) Total Bilirubin 0.4 mg/dL (0.2-1.0) Aspartate Amino Transf (AST/SGOT) 31 U/L (15-37) Alanine Aminotransferase (ALT/SGPT) 21 U/L (14-59) Alkaline Phosphatase 66 U/L (46-116) Total Protein 6.4 g/dL (6.4-8.2) Albumin 3.0 g/dL (3.4-5.0) Albumin/Globulin Ratio 0.9 (1.0-1.7) Lipase 615 U/L (73-393) Vitamin B12 Level 920 pg/mL (247-911) Test 03/21/20 08:40 03/21/20 14:43 03/21/20 23:29 03/22/20 08:10 O2 Saturation 93 % (92-99) Arterial Blood pH 7.19 (7.35-7.45) Arterial Blood pCO2 at Patient Temp 18 mmHg (35-46) Arterial Blood pO2 at Patient Temp 85 mmHg (65-108) Arterial Blood HCO3 7 mmol/L (21-28) Arterial Blood Base Excess -20 mmol/L (-3-3) FiO2 30 Glucose (Fingerstick) 150 mg/dL (70-99) 191 mg/dL (70-99) Sodium Level 149 mmol/L (136-145) Potassium Level 4.4 mmol/L (3.5-5.1) Chloride Level 119 mmol/L (98-107) Carbon Dioxide Level 9 mmol/L (21-32) Anion Gap 21 (6-14) Blood Urea Nitrogen 49 mg/dL (7-20) Creatinine 1.6 mg/dL (0.6-1.0) Estimated GFR (Cockcroft-Gault) 31.2 BUN/Creatinine Ratio 31 (6-20) Glucose Level 188 mg/dL (70-99) Calcium Level 8.2 mg/dL (8.5-10.1) Total Bilirubin 0.4 mg/dL (0.2-1.0) Aspartate Amino Transf (AST/SGOT) 35 U/L (15-37) Alanine Aminotransferase (ALT/SGPT) 24 U/L (14-59) Alkaline Phosphatase 65 U/L (46-116) Total Protein 5.7 g/dL (6.4-8.2) Albumin 2.8 g/dL (3.4-5.0) Albumin/Globulin Ratio 1.0 (1.0-1.7) Laboratory Tests Test 03/21/20 14:43 03/21/20 23:29 03/22/20 08:10 Glucose (Fingerstick) 150 mg/dL (70-99) 191 mg/dL (70-99) Sodium Level 149 mmol/L (136-145) Potassium Level 4.4 mmol/L (3.5-5.1) Chloride Level 119 mmol/L (98-107) Carbon Dioxide Level 9 mmol/L (21-32) Anion Gap 21 (6-14) Blood Urea Nitrogen 49 mg/dL (7-20) Creatinine 1.6 mg/dL (0.6-1.0) Estimated GFR (Cockcroft-Gault) 31.2 BUN/Creatinine Ratio 31 (6-20) Glucose Level 188 mg/dL (70-99) Calcium Level 8.2 mg/dL (8.5-10.1) Total Bilirubin 0.4 mg/dL (0.2-1.0) Aspartate Amino Transf (AST/SGOT) 35 U/L (15-37) Alanine Aminotransferase (ALT/SGPT) 24 U/L (14-59) Alkaline Phosphatase 65 U/L (46-116) Total Protein 5.7 g/dL (6.4-8.2) Albumin 2.8 g/dL (3.4-5.0) Albumin/Globulin Ratio 1.0 (1.0-1.7) Assessment/Plan d/w Dr chan--concern for bowel ischemia with ongoing acidosis will have Dr Crow FU would be a poor surgical candidate in current state Justicifation of Admission Dx: Justifications for Admission: Justification of Admission Dx: Yes Respiratory Failure: Severe Resp Distress GLADYS CROW MD 03/22/20 1232: SURGICAL PROGRESS NOTE Assessment/Plan Patient seen and examined by me she is on CPAP fairly unresponsive does not respond to verbal stimuli her abdomen is soft nondistended does not appear to be tender to deep palpation. CT scan reviewed not appear to be any acute processes involving the intestines. Lactic acid 1.8 unlikely ischemic bowel. Patient is extremely poor surgical candidate RADHIKA BAKER APRN Mar 22, 2020 09:56 GLADYS CROW MD Mar 22, 2020 12:32
[2020-03-22 09:59] LABS: AMYLASE 80 U/L (25-115); LIPASE 371 U/L (73-393)
[2020-03-22] MEDS ORDERED: SODIUM BICARB ADULT 8.4% 50 MEQ/50 ML DISP.SYRIN. IV ONE (10:00)
[2020-03-22] MEDS: SODIUM BICARBONATE VIAL 150 MEQ in IV DEXTROSE 5% 1,000 ML IV SCH (10:22)
--- NOTE | 2020-03-22 10:34 | NUR ---
SS following up with discharge planning. SS reviewed pt chart and discussed with pt RN. Pt is from home with spouse and is currently on BIPAP. Pt on IV Zyvox and IV Meropenem. COVID19 negative. SS will continue to follow for discharge planning.
--- NOTE | 2020-03-22 11:03 | PDOC ---
[facility] PROGRESS NOTE Date of Service DOS: DATE: 03/22/20 TIME: 11:01 Chief Complaint Chief Complaint Acute encephalopathy - likely metabolic from pancreatitis, sepsis. Sepsis -likely secondary to UTI and C. difficile, will consult infectious diseases for assistance. UTI (urinary tract infection) Acute Pancreatitis Left renal mass Pulmonary nodules H/o asthma Cholelithiasis Intractable Abdominal pain History of recurrent Clostridium difficile. Acute hypoxic respiratory failure Acute on chronic Anemia Weight loss History of Sjogren's Diabetes mellitus Severe metabolic acidosis Acute kidney injury Elevated BNP History of Present Illness History of Present Illness 03/22/2020 Patient seen and examined in the ICU He is on BiPAP with 40% FiO2 Also on IV Zyvox Tachycardic Chart reviewed Discussed with case management Discussed with RN Vitals/I&O Vitals/I&O: Vital Signs Date Time Temp Pulse Resp B/P (MAP) Pulse Ox O2 Delivery O2 Flow Rate FiO2 03/22/20 09:51 112 153/69 03/22/20 08:30 99 BiPAP/CPAP 03/22/20 06:00 32 03/22/20 04:00 98.9 98.9 03/21/20 08:45 2.5 I & O 03/21/20 03/21/20 03/22/20 15:00 23:00 07:00 Intake Total 515 ml 1125 ml Output Total 380 ml 150 ml 200 ml Balance -380 ml 365 ml 925 ml Physical Exam Physical Exam: GENERAL: Lethargic, weak-appearing female, on BiPAP. HEENT: Anicteric. NECK: Supple. LUNGS: Decreased breath sounds at the bases. HEART: S1, S2. No gallops or murmurs. ABDOMEN: Soft, nontender, mildly distended. GENITOURINARY: Bernard in place. EXTREMITIES: No edema, no cyanosis. DERMATOLOGIC: Warm, dry. No generalized rash. Multiple bruises. CENTRAL NERVOUS SYSTEM: Alert, awake, extremely weak and lethargic. General: Other (not responsive) Heart: Other (tachy) Lungs: Other (decrease bs) Abdomen: Soft Skin: No rashes, No breakdown Labs Labs: Laboratory Tests Test 03/21/20 14:43 03/21/20 23:29 03/22/20 08:10 Glucose (Fingerstick) 150 mg/dL (70-99) 191 mg/dL (70-99) Sodium Level 149 mmol/L (136-145) Potassium Level 4.4 mmol/L (3.5-5.1) Chloride Level 119 mmol/L (98-107) Carbon Dioxide Level 9 mmol/L (21-32) Anion Gap 21 (6-14) Blood Urea Nitrogen 49 mg/dL (7-20) Creatinine 1.6 mg/dL (0.6-1.0) Estimated GFR (Cockcroft-Gault) 31.2 BUN/Creatinine Ratio 31 (6-20) Glucose Level 188 mg/dL (70-99) Calcium Level 8.2 mg/dL (8.5-10.1) Total Bilirubin 0.4 mg/dL (0.2-1.0) Aspartate Amino Transf (AST/SGOT) 35 U/L (15-37) Alanine Aminotransferase (ALT/SGPT) 24 U/L (14-59) Alkaline Phosphatase 65 U/L (46-116) Total Protein 5.7 g/dL (6.4-8.2) Albumin 2.8 g/dL (3.4-5.0) Albumin/Globulin Ratio 1.0 (1.0-1.7) Amylase Level 80 U/L (25-115) Lipase 371 U/L (73-393) Assessment and Plan Assessmemt and Plan Acute encephalopathy - likely metabolic from pancreatitis, sepsis. Sepsis -likely secondary to UTI and C. difficile, will consult infectious diseases for assistance. UTI (urinary tract infection) -started on empiric vancomycin, Rocephin and Zosyn by ED, will ID consulted. Acute Pancreatitis -unclear etiology, may be due to sepsis. GI consulted for assistance. Left renal mass - will obtain renal ultrasound when she is more stable. Pulmonary nodules - concerning for solid mass bilaterally. Pulmonology consulted, needs close f/u. H/o asthma - nebulizers ordered Cholelithiasis - general surgery following Intractable Abdominal pain -lateral portion had a physical exam. Concerning for potential ischemic colitis, however pancreatitis does not possible as well. GI and general surgery History of recurrent Clostridium difficile. Acute hypoxic respiratory failure, on BiPAP. Acute on chronic Anemia - possibly GI bleed, will monitor. Weight loss - likely from chronic and acid disease History of Sjogren's - worsening Diabetes mellitus - Sliding scale Severe metabolic acidosis - likely from sepsis, will need close monitoring Acute kidney injury - vasomotor nephropathy from sepsis, will hydrate Elevated BNP - does have cardiology at [facility]. Will consult cardiology for further recommendations as her fluid status is difficult to currently interpret and with sepsis I would err on giving fluids as she is on BIPAP Comment Review of Relevant I have reviewed the following items paula (where applicable) has been applied. Medications: Current Medications Medications (Trade) Dose Ordered Sig/Bridget Route PRN Reason Start Time Stop Time Status Last Admin Dose Admin Famotidine (Pepcid Vial) 20 mg QHS IVP 03/21/20 21:00 03/21/20 20:55 Meropenem 500 mg/ Sodium Chloride 50 ml @ 100 mls/hr Q12HR IV 03/21/20 21:00 03/22/20 09:38 Linezolid/Dextrose 300 ml @ 300 mls/hr Q12HR IV 03/21/20 21:00 03/22/20 09:38 Vancomycin HCl (Vancomycin Oral Solution) 125 mg [id number] PO 03/21/20 13:00 03/21/20 21:48 Heparin Sodium (Porcine) (Heparin Sodium) 5,000 unit Q8HRS SQ 03/21/20 15:30 03/22/20 06:07 Metoprolol Tartrate (Lopressor Vial) 10 mg BID IVP 03/21/20 22:30 03/22/20 09:51 Sodium Bicarbonate 150 meq/Dextrose 1,150 ml @ 75 mls/hr [id number] IV 03/22/20 10:00 03/22/20 10:22 Sodium Bicarbonate (Sodium Bicarb Adult 8.4% Syr) 100 meq 1X ONCE IV 03/22/20 10:00 03/22/20 10:01 DC 03/22/20 09:51 Justifications for Admission Other Justification CLAUDIA YI III DO Mar 22, 2020 11:03
--- NOTE | 2020-03-22 12:05 | PDOC ---
Date of Service: DATE: 03/22/20 TIME: 11:59 Objective: Objective: D/w Gretchen/surgery - concern from other re: possible ischemic bowel, plans to repeat CT. Hasn't stooled. Vital Signs: Vital Signs Date Time Temp Pulse Resp B/P (MAP) Pulse Ox O2 Delivery O2 Flow Rate FiO2 03/22/20 11:45 100 BiPAP/CPAP 03/22/20 09:51 112 153/69 03/22/20 06:00 32 03/22/20 04:00 98.9 98.9 03/21/20 08:45 2.5 Labs: Laboratory Tests Test 03/21/20 14:43 03/21/20 23:29 03/22/20 08:10 03/22/20 11:00 Glucose (Fingerstick) 150 mg/dL 191 mg/dL Sodium Level 149 mmol/L Potassium Level 4.4 mmol/L Chloride Level 119 mmol/L Carbon Dioxide Level 9 mmol/L Anion Gap 21 Blood Urea Nitrogen 49 mg/dL Creatinine 1.6 mg/dL Estimated GFR (Cockcroft-Gault) 31.2 BUN/Creatinine Ratio 31 Glucose Level 188 mg/dL Calcium Level 8.2 mg/dL Total Bilirubin 0.4 mg/dL Aspartate Amino Transf (AST/SGOT) 35 U/L Alanine Aminotransferase (ALT/SGPT) 24 U/L Alkaline Phosphatase 65 U/L Total Protein 5.7 g/dL Albumin 2.8 g/dL Albumin/Globulin Ratio 1.0 Amylase Level 80 U/L Lipase 371 U/L Lactic Acid Level 1.8 mmol/L PE: GEN: ill LUNGS: BiPAP HEART: tachycardic ABD: quiet, soft, non-tender NEURO/PSYCH: mumbling A/P: Abd pain, ?diarrhea - prior to admission Resp failure, UTI ACD Pancreatitis, cholelithiasis - benign abd exam, normal LFTs, lipase improved H/o C Diff -- Await interval CT. Justicifation of Admission Dx: Justifications for Admission: Justification of Admission Dx: Yes Respiratory Failure: Severe Resp Distress MARY GUEVARA Mar 22, 2020 12:04
[2020-03-22 12:23] LABS: PCO2 ABG 20 mmHg (35-46)
[2020-03-22 12:24] LABS: FIO2 ABG 40% 20/8 R16
--- NOTE | 2020-03-22 12:30 | RAD ---
EXAM: CT Abdomen and Pelvis without IV contrast INDICATION: Reason: ischemic bowel / Spl. Instructions: / History: TECHNIQUE: Multi-detector row CT images were acquired from the lung bases through the abdomen and pelvis without the use of IV contrast. Sagittal and coronal images were acquired from the transaxial data. All CT scans performed at this facility utilize dose optimization techniques as appropriate to the exam, including the following: Automated exposure control and adjustment of the mA and/or KV according to patient size (this includes techniques or standardized protocols for targeted exams where dose is indication/reason for exam). ORAL CONTRAST: None COMPARISON: CT chest abdomen pelvis with IV contrast of 05/24/2005 FINDINGS: The absence of IV contrast limits evaluation of soft tissue pathology. Evaluation is also limited by extensive respiratory motion artifact, and by beam hardening artifact from the patient's overlying upper extremities and external supportive equipment. LOWER CHEST: Mildly enlarged heart. No pericardial effusion. Right ventricle appears larger than the left, and there is dilation of the right atrium, suggesting possible right-sided heart failure. LIVER: Unremarkable BILIARY SYSTEM: Gallbladder is mildly distended and contains layering gallstones. No pericholecystic soft tissue stranding or wall thickening is apparent on CT Bile ducts are not dilated. PANCREAS: Unremarkable SPLEEN: Unremarkable ADRENALS: Partly obscured by artifact. Mild retroperitoneal soft tissue stranding is present. No discrete adrenal mass is apparent. KIDNEYS & URETERS: Atrophy of the left more than the right bilateral kidneys is present with dense exophytic 1.1 cm lesion in the midpole left kidney, likely representing a proteinaceous or hemorrhagic cyst. This does not require additional imaging follow-up in the absence of relevant symptoms. No hydronephrosis or renal stones. Mild bilateral perirenal soft tissue stranding. BLADDER: Bladder contains a Bernard catheter and is moderately distended with intraluminal gas and fluid. There is wall thickening present, most conspicuous along the lateral calvert and dorsal dome.. Minimal perivesical soft tissue stranding. REPRODUCTIVE ORGANS: Absent uterus. Right ovary not seen and may be surgically absent as well. Atrophic left ovary suggested in the left adnexa. GASTROINTESTINAL: The bowel is generally collapsed and no wall thickening or pneumatosis is apparent. However, there is suggestion of diffuse wall thickening in the stomach and there is edema in the left upper quadrant abdominal mesentery, best illustrated on image 31 of series 2 appendix is not seen but there are no findings of acute appendicitis noted. MESENTERY/PERITONEUM/RETROPERITONEUM: Besides the mild soft tissue stranding in the left upper quadrant mesentery, no acute findings are appreciated. No free air, fluid collection or significant ascites is noted. VASCULAR: Scattered arterial calcifications. No aortic aneurysm. LYMPH NODES: No adenopathy OSSEOUS & SOFT TISSUES: Unremarkable IMPRESSION: 1. Findings suggest of cystitis with a Bernard catheter in place. 2. Although the stomach is underdistended, there is gastric wall thickening that is suspicious for an underlying pathologic process. Cannot confidently exclude ischemia. 3. Nonspecific soft tissue stranding in the left upper quadrant mesentery, compatible with mesenteric edema. This also could be an early sign of ischemic bowel in the appropriate clinical context. Discussed with Dr. Woods by telephone at 11:45 AM on 03/22/2020. Electronically signed by: Bruna Berumen MD (03/22/2020 12:27 PM) [id number]
[2020-03-22] MEDS ORDERED: VANCOMYCIN 1 GM in IV NORMAL SALINE 250ML 250 ML IV SCH (20:00)
[2020-03-22] MEDS: ATORVASTATIN CALCIUM 20 MG TABLET PO SCH (21:00)
[2020-03-22] MEDS: PANTOPRAZOLE IV PUSH 40 MG VIAL. IVP SCH (21:20)
[2020-03-23] VITALS (16 sets, daily range): BP systolic 118–179; BP diastolic 58–92
[2020-03-23] MEDS: SODIUM BICARBONATE VIAL 150 MEQ in IV DEXTROSE 5% 1,000 ML IV SCH ×2 (00:43→09:04)
[2020-03-23 05:14] LABS: BASO % 0 % (0-3); EOS % 0 % (0-3); HEMATOCRIT 27.6 % (36.0-47.0); HEMOGLOBIN 8.5 g/dL (12.0-15.5); LYMPH # 0.4 x10^3/uL (1.0-4.8); LYMPH % 3 % (24-48); MEAN CORPUSCULAR HEMOGLOBIN 33 pg (25-35); MEAN CORPUSCULAR HGB CONC 31 g/dL (31-37); MEAN CORPUSCULAR VOLUME 109 fL (79-100); MONO # 0.6 x10^3/uL (0.0-1.1); MONO % 5 % (0-9); NEUT # 10.9 x10^3/uL (1.8-7.7); NEUT % 92 % (31-73); PLATELET COUNT 181 x10^3/uL (140-400); RED BLOOD COUNT 2.54 x10^6/uL (3.50-5.40); RED CELL DISTRIBUTION WIDTH 22.5 % (11.5-14.5); WHITE BLOOD COUNT 11.9 x10^3/uL (4.0-11.0)
[2020-03-23] MEDS: HEPARIN for SUB-Q USE 5,000 UNIT/ML VIAL. SQ SCH (06:19)
--- NOTE | 2020-03-23 08:30 | PDOC ---
Infectious Disease Note Subjective: Subjective Patient off BiPAP since this morning Does not answer most questions Weak, lethargic No BM Afebrile Vital Signs: Vital Signs Vital Signs Date Time Temp Pulse Resp B/P (MAP) Pulse Ox O2 Delivery O2 Flow Rate FiO2 03/23/20 08:15 Bi-pap 03/23/20 08:05 99.1 99 24 136/75 (95) 100 99.1 Physical Exam: PHYSICAL EXAM GENERAL: Lethargic, weak-appearing female, on BiPAP. HEENT: Anicteric. NECK: Supple. LUNGS: Decreased breath sounds at the bases. HEART: S1, S2. No gallops or murmurs. ABDOMEN: Soft, nontender, mildly distended. GENITOURINARY: Bernard in place. EXTREMITIES: No edema, no cyanosis. DERMATOLOGIC: Warm, dry. No generalized rash. Multiple bruises. CENTRAL NERVOUS SYSTEM: Alert, awake, extremely weak and lethargic. Medications: Inpatient Meds: Current Medications Medications (Trade) Dose Ordered Sig/Bridget Start Time Stop Time Status Last Admin Dose Admin Albuterol Sulfate (Ventolin Neb Soln) 2.5 mg PRN Q4HRS PRN 03/21/20 08:15 Albuterol/ Ipratropium (Duoneb) 3 ml RTQID 03/21/20 08:15 03/22/20 19:58 3 ML Amlodipine Besylate (Norvasc) 2.5 mg DAILY 03/21/20 15:30 Ascorbic Acid (Vitamin C) 500 mg BID 03/21/20 21:00 Atorvastatin Calcium (Lipitor) 20 mg QHS 03/21/20 21:00 Budesonide (Pulmicort) 0.5 mg RTBID 03/21/20 08:15 03/22/20 19:58 0.5 MG Famotidine (Pepcid Vial) 20 mg QHS 03/21/20 21:00 03/22/20 14:51 DC 03/21/20 20:55 20 MG Heparin Sodium (Porcine) (Heparin Sodium) 5,000 unit Q8HRS 03/21/20 15:30 03/23/20 06:19 5,000 UNIT Linezolid/Dextrose 300 ml @ 300 mls/hr Q12HR 03/21/20 21:00 03/22/20 21:22 300 MLS/HR Meropenem 500 mg/ Sodium Chloride 50 ml @ 100 mls/hr Q12HR 03/21/20 21:00 03/22/20 21:21 100 MLS/HR Metoprolol Tartrate (Lopressor Vial) 10 mg BID 03/21/20 22:30 03/22/20 21:20 10 MG Metoprolol Tartrate (Lopressor) 25 mg BID 03/21/20 21:00 03/21/20 22:19 DC Morphine Sulfate (Morphine Sulfate) 2 mg PRN Q2HR PRN 03/20/20 18:00 Non-Formulary Medication (Cevimeline Hcl ) 30 mg TID 03/21/20 21:00 Ondansetron HCl (Zofran) 4 mg PRN Q6HRS PRN 03/20/20 18:00 Pantoprazole Sodium (PROTONIX VIAL for IV PUSH) 40 mg BID 03/22/20 21:00 03/22/20 21:20 40 MG Piperacillin Sod/ Tazobactam Sod (Zosyn Per Pharmacy) 1 each PRN DAILY PRN 03/20/20 18:00 03/21/20 12:07 DC Piperacillin Sod/ Tazobactam Sod 2.25 gm/Sodium Chloride 50 ml @ 100 mls/hr Q6HRS 03/20/20 19:00 03/21/20 12:04 DC 03/21/20 05:32 100 MLS/HR Sodium Bicarbonate 150 meq/Dextrose 1,150 ml @ 150 mls/hr [id number] 03/22/20 10:00 03/23/20 00:43 150 MLS/HR Sodium Bicarbonate (Sodium Bicarb Adult 8.4% Syr) 100 meq 1X ONCE 03/22/20 10:00 03/22/20 10:01 DC 03/22/20 09:51 100 MEQ Sodium Chloride 1,000 ml @ 75 mls/hr [id number] 03/20/20 18:00 03/22/20 09:38 75 MLS/HR Vancomycin HCl (Vanco Per Pharmacy) 1 each PRN DAILY PRN 03/20/20 18:00 03/21/20 12:08 DC 03/21/20 11:32 1 EACH Vancomycin HCl (Vancomycin Trough Level) 1 each 1X ONCE 03/24/20 19:30 03/21/20 12:08 DC Vancomycin HCl (Vancomycin Oral Solution) 125 mg [id number] 03/21/20 13:00 03/21/20 21:48 125 MG Vancomycin HCl 1.25 gm/Sodium Chloride 250 ml @ 167 mls/hr 1X ONCE 03/20/20 20:00 03/20/20 21:29 DC 03/20/20 20:38 167 MLS/HR Vancomycin HCl 1 gm/Sodium Chloride 250 ml @ 250 mls/hr Q48H 03/22/20 20:00 03/21/20 12:04 DC Labs: Lab Laboratory Tests Test 03/22/20 11:00 03/23/20 04:40 Lactic Acid Level 1.8 mmol/L (0.4-2.0) White Blood Count 11.9 x10^3/uL (4.0-11.0) Red Blood Count 2.54 x10^6/uL (3.50-5.40) Hemoglobin 8.5 g/dL (12.0-15.5) Hematocrit 27.6 % (36.0-47.0) Mean Corpuscular Volume 109 fL (79-100) Mean Corpuscular Hemoglobin 33 pg (25-35) Mean Corpuscular Hemoglobin Concent 31 g/dL (31-37) Red Cell Distribution Width 22.5 % (11.5-14.5) Platelet Count 181 x10^3/uL (140-400) Neutrophils (%) (Auto) 92 % (31-73) Lymphocytes (%) (Auto) 3 % (24-48) Monocytes (%) (Auto) 5 % (0-9) Eosinophils (%) (Auto) 0 % (0-3) Basophils (%) (Auto) 0 % (0-3) Neutrophils # (Auto) 10.9 x10^3/uL (1.8-7.7) Lymphocytes # (Auto) 0.4 x10^3/uL (1.0-4.8) Monocytes # (Auto) 0.6 x10^3/uL (0.0-1.1) Eosinophils # (Auto) 0.0 x10^3/uL (0.0-0.7) Basophils # (Auto) 0.0 x10^3/uL (0.0-0.2) Objective: Assessment: 1. Leukocytosis.source likely gi, possible ischemia 2. Urinary tract infection.UC < 40K e coli 3. Abdominal pain. 4. History of recurrent Clostridium difficile. 5. Altered mental status. 6. Acute hypoxic respiratory failure, on BiPAP. 7. Anemia. 8. Pancreatitis, cholelithiasis. 9. Left renal mass. 10. Weight loss. 11. History of Sjogren's. 12. Diabetes mellitus. 13. Severe metabolic acidosis. Plan: Plan of Care Continue Merrem and Zyvox Continue p.o. vancomycin Follow-up GI panel and C. difficile PCR if patient has diarrhea Follow-up labs and cultures Follow-up cultures from [facility], Stool studies from outside MD office pending at this time per discussion with at bedside Critically ill Discussed with nursing staff INES AGUIRRE MD Mar 23, 2020 08:30
[2020-03-23] MEDS: VANCOMYCIN 125 MG/2.5 ML ORAL SOLUTION. PO SCH ×2 (08:31→13:00)
[2020-03-23] MEDS: amLODIPine BESYLATE 5 MG TABLET PO SCH (08:31)
[2020-03-23] MEDS: ASCORBIC ACID 500 MG TABLET PO SCH (08:31)
--- NOTE | 2020-03-23 08:32 | PDOC ---
SURGICAL PROGRESS NOTE DATE: 03/23/20 TIME: 08:30 Subjective Essentially unresponsive on CPAP Vital Signs Vital Signs Date Time Temp Pulse Resp B/P (MAP) Pulse Ox O2 Delivery O2 Flow Rate FiO2 03/23/20 08:15 Bi-pap 03/23/20 08:05 99.1 99 24 136/75 (95) 100 99.1 I&O Intake and Output 03/23/20 07:00 Intake Total 4340 ml Output Total 585 ml Balance 3755 ml Intake Oral 0 ml IV Total 4340 ml Output Urine Total 585 ml PATIENT HAS A PATEL: Yes General: Other (Minimal responsiveness) HEENT: Other (CPAP in place) Heart: Regular rate Abdomen: Normal bowel sounds, Soft, No tenderness Labs Laboratory Tests Test 03/21/20 08:40 03/21/20 14:43 03/21/20 23:29 03/22/20 08:00 O2 Saturation 93 % (92-99) 96 % (92-99) Arterial Blood pH 7.19 (7.35-7.45) 7.19 (7.35-7.45) Arterial Blood pCO2 at Patient Temp 18 mmHg (35-46) 20 mmHg (35-46) Arterial Blood pO2 at Patient Temp 85 mmHg (65-108) 111 mmHg (65-108) Arterial Blood HCO3 7 mmol/L (21-28) 8 mmol/L (21-28) Arterial Blood Base Excess -20 mmol/L (-3-3) -19 mmol/L (-3-3) FiO2 30 40% 20/8 r16 Glucose (Fingerstick) 150 mg/dL (70-99) 191 mg/dL (70-99) Test 03/22/20 08:10 03/22/20 11:00 03/23/20 04:40 Sodium Level 149 mmol/L (136-145) Potassium Level 4.4 mmol/L (3.5-5.1) Chloride Level 119 mmol/L (98-107) Carbon Dioxide Level 9 mmol/L (21-32) Anion Gap 21 (6-14) Blood Urea Nitrogen 49 mg/dL (7-20) Creatinine 1.6 mg/dL (0.6-1.0) Estimated GFR (Cockcroft-Gault) 31.2 BUN/Creatinine Ratio 31 (6-20) Glucose Level 188 mg/dL (70-99) Calcium Level 8.2 mg/dL (8.5-10.1) Total Bilirubin 0.4 mg/dL (0.2-1.0) Aspartate Amino Transf (AST/SGOT) 35 U/L (15-37) Alanine Aminotransferase (ALT/SGPT) 24 U/L (14-59) Alkaline Phosphatase 65 U/L (46-116) Total Protein 5.7 g/dL (6.4-8.2) Albumin 2.8 g/dL (3.4-5.0) Albumin/Globulin Ratio 1.0 (1.0-1.7) Amylase Level 80 U/L (25-115) Lipase 371 U/L (73-393) Lactic Acid Level 1.8 mmol/L (0.4-2.0) White Blood Count 11.9 x10^3/uL (4.0-11.0) Red Blood Count 2.54 x10^6/uL (3.50-5.40) Hemoglobin 8.5 g/dL (12.0-15.5) Hematocrit 27.6 % (36.0-47.0) Mean Corpuscular Volume 109 fL (79-100) Mean Corpuscular Hemoglobin 33 pg (25-35) Mean Corpuscular Hemoglobin Concent 31 g/dL (31-37) Red Cell Distribution Width 22.5 % (11.5-14.5) Platelet Count 181 x10^3/uL (140-400) Neutrophils (%) (Auto) 92 % (31-73) Lymphocytes (%) (Auto) 3 % (24-48) Monocytes (%) (Auto) 5 % (0-9) Eosinophils (%) (Auto) 0 % (0-3) Basophils (%) (Auto) 0 % (0-3) Neutrophils # (Auto) 10.9 x10^3/uL (1.8-7.7) Lymphocytes # (Auto) 0.4 x10^3/uL (1.0-4.8) Monocytes # (Auto) 0.6 x10^3/uL (0.0-1.1) Eosinophils # (Auto) 0.0 x10^3/uL (0.0-0.7) Basophils # (Auto) 0.0 x10^3/uL (0.0-0.2) Laboratory Tests Test 03/22/20 11:00 03/23/20 04:40 Lactic Acid Level 1.8 mmol/L (0.4-2.0) White Blood Count 11.9 x10^3/uL (4.0-11.0) Red Blood Count 2.54 x10^6/uL (3.50-5.40) Hemoglobin 8.5 g/dL (12.0-15.5) Hematocrit 27.6 % (36.0-47.0) Mean Corpuscular Volume 109 fL (79-100) Mean Corpuscular Hemoglobin 33 pg (25-35) Mean Corpuscular Hemoglobin Concent 31 g/dL (31-37) Red Cell Distribution Width 22.5 % (11.5-14.5) Platelet Count 181 x10^3/uL (140-400) Neutrophils (%) (Auto) 92 % (31-73) Lymphocytes (%) (Auto) 3 % (24-48) Monocytes (%) (Auto) 5 % (0-9) Eosinophils (%) (Auto) 0 % (0-3) Basophils (%) (Auto) 0 % (0-3) Neutrophils # (Auto) 10.9 x10^3/uL (1.8-7.7) Lymphocytes # (Auto) 0.4 x10^3/uL (1.0-4.8) Monocytes # (Auto) 0.6 x10^3/uL (0.0-1.1) Eosinophils # (Auto) 0.0 x10^3/uL (0.0-0.7) Basophils # (Auto) 0.0 x10^3/uL (0.0-0.2) Assessment/Plan CT scan suggestive of possible ischemia of the stomach, and her current condition would be nonsurvivable No surgical plans at this time Justicifation of Admission Dx: Justifications for Admission: Justification of Admission Dx: Yes Respiratory Failure: Severe Resp Distress GLADYS CROW MD Mar 23, 2020 08:32
[2020-03-23] MEDS: IPRATRPIUM/ALBUTEROL 0.5/2.5MG 3 ML NEBU. NEB SCH ×2 (08:48→12:15)
[2020-03-23] MEDS: BUDESONIDE 0.5 MG/2 ML NEBU. NEB SCH (08:49)
[2020-03-23 08:59] LABS: BASE EXCESS ABG -2 mmol/L (-3-3); HCO3 ABG 21 mmol/L (21-28); PCO2 ABG 30 mmHg (35-46); PO2 ABG 132 mmHg (65-108); SAT O2 ABG 98 % (92-99)
[2020-03-23] MEDS: PANTOPRAZOLE IV PUSH 40 MG VIAL. IVP SCH (09:10)
[2020-03-23] MEDS: METOPROLOL TARTRATE 5 MG/5 ML VIAL. IVP SCH (09:30)
[2020-03-23] MEDS: MEROPENEM 500 MG in IV NORMAL SALINE 50ML 50 ML IV SCH (09:37)
--- NOTE | 2020-03-23 09:52 | PDOC ---
PULMONARY PROGRESS NOTES DATE: 03/23/20 TIME: 09:50 Subjective more alert has abd pain on 02 very acidotic Vitals Vital Signs Date Time Temp Pulse Resp B/P (MAP) Pulse Ox O2 Delivery O2 Flow Rate FiO2 03/23/20 09:30 102 141/79 03/23/20 09:00 24 100 BiPAP/CPAP 03/23/20 08:05 99.1 99.1 Comments ros as mentioned as above other sys otherwise neg on 02 alert General: Alert, Lethargic HEENT: Other (nc at perrl nose throat clear neck no lad no thyromegaly) Lungs: Other (decrease bs) Cardiovascular: S1 Abdomen: Soft, Other (tender no mass) Neuro Exam: Alert Extremities: No Edema Skin: Warm Labs Laboratory Tests Test 03/21/20 14:43 03/21/20 23:29 03/22/20 08:00 03/22/20 08:10 Glucose (Fingerstick) 150 mg/dL (70-99) 191 mg/dL (70-99) O2 Saturation 96 % (92-99) Arterial Blood pH 7.19 (7.35-7.45) Arterial Blood pCO2 at Patient Temp 20 mmHg (35-46) Arterial Blood pO2 at Patient Temp 111 mmHg (65-108) Arterial Blood HCO3 8 mmol/L (21-28) Arterial Blood Base Excess -19 mmol/L (-3-3) FiO2 40% 20/8 r16 Sodium Level 149 mmol/L (136-145) Potassium Level 4.4 mmol/L (3.5-5.1) Chloride Level 119 mmol/L (98-107) Carbon Dioxide Level 9 mmol/L (21-32) Anion Gap 21 (6-14) Blood Urea Nitrogen 49 mg/dL (7-20) Creatinine 1.6 mg/dL (0.6-1.0) Estimated GFR (Cockcroft-Gault) 31.2 BUN/Creatinine Ratio 31 (6-20) Glucose Level 188 mg/dL (70-99) Calcium Level 8.2 mg/dL (8.5-10.1) Total Bilirubin 0.4 mg/dL (0.2-1.0) Aspartate Amino Transf (AST/SGOT) 35 U/L (15-37) Alanine Aminotransferase (ALT/SGPT) 24 U/L (14-59) Alkaline Phosphatase 65 U/L (46-116) Total Protein 5.7 g/dL (6.4-8.2) Albumin 2.8 g/dL (3.4-5.0) Albumin/Globulin Ratio 1.0 (1.0-1.7) Amylase Level 80 U/L (25-115) Lipase 371 U/L (73-393) Test 03/22/20 11:00 03/23/20 04:40 Lactic Acid Level 1.8 mmol/L (0.4-2.0) White Blood Count 11.9 x10^3/uL (4.0-11.0) Red Blood Count 2.54 x10^6/uL (3.50-5.40) Hemoglobin 8.5 g/dL (12.0-15.5) Hematocrit 27.6 % (36.0-47.0) Mean Corpuscular Volume 109 fL (79-100) Mean Corpuscular Hemoglobin 33 pg (25-35) Mean Corpuscular Hemoglobin Concent 31 g/dL (31-37) Red Cell Distribution Width 22.5 % (11.5-14.5) Platelet Count 181 x10^3/uL (140-400) Neutrophils (%) (Auto) 92 % (31-73) Lymphocytes (%) (Auto) 3 % (24-48) Monocytes (%) (Auto) 5 % (0-9) Eosinophils (%) (Auto) 0 % (0-3) Basophils (%) (Auto) 0 % (0-3) Neutrophils # (Auto) 10.9 x10^3/uL (1.8-7.7) Lymphocytes # (Auto) 0.4 x10^3/uL (1.0-4.8) Monocytes # (Auto) 0.6 x10^3/uL (0.0-1.1) Eosinophils # (Auto) 0.0 x10^3/uL (0.0-0.7) Basophils # (Auto) 0.0 x10^3/uL (0.0-0.2) Laboratory Tests Test 03/22/20 11:00 03/23/20 04:40 Lactic Acid Level 1.8 mmol/L (0.4-2.0) White Blood Count 11.9 x10^3/uL (4.0-11.0) Red Blood Count 2.54 x10^6/uL (3.50-5.40) Hemoglobin 8.5 g/dL (12.0-15.5) Hematocrit 27.6 % (36.0-47.0) Mean Corpuscular Volume 109 fL (79-100) Mean Corpuscular Hemoglobin 33 pg (25-35) Mean Corpuscular Hemoglobin Concent 31 g/dL (31-37) Red Cell Distribution Width 22.5 % (11.5-14.5) Platelet Count 181 x10^3/uL (140-400) Neutrophils (%) (Auto) 92 % (31-73) Lymphocytes (%) (Auto) 3 % (24-48) Monocytes (%) (Auto) 5 % (0-9) Eosinophils (%) (Auto) 0 % (0-3) Basophils (%) (Auto) 0 % (0-3) Neutrophils # (Auto) 10.9 x10^3/uL (1.8-7.7) Lymphocytes # (Auto) 0.4 x10^3/uL (1.0-4.8) Monocytes # (Auto) 0.6 x10^3/uL (0.0-1.1) Eosinophils # (Auto) 0.0 x10^3/uL (0.0-0.7) Basophils # (Auto) 0.0 x10^3/uL (0.0-0.2) Medications Active Scripts Medications Dose Route/Sig Max Daily Dose Days Date Category Methenamine Mandelate 1 Gm Tablet 1 Tab PO BID 30 03/21/20 Reported Metformin Hcl 500 Mg Tablet 500 Mg PO TID 03/21/20 Reported Cevimeline Hcl 30 Mg Capsule 30 Mg PO TID 03/21/20 Reported Vitamin C (Ascorbic Acid) 500 Mg Capsule.er 500 Mg PO BID 03/21/20 Reported Gemfibrozil 600 Mg Tablet 1 Tab PO DAILY 03/21/20 Reported Furosemide 20 Mg Tablet 1 Tab PO DAILY 03/21/20 Reported Atorvastatin Calcium 20 Mg Tablet 1 Tab PO DAILY 03/21/20 Reported Sildenafil (Sildenafil Citrate) 20 Mg Tablet 20 Mg PO TID 03/21/20 Reported Amlodipine Besylate 2.5 Mg Tablet 2.5 Mg PO DAILY 03/21/20 Reported Trospium Chloride 20 Mg Tablet 20 Mg PO BID 03/21/20 Reported Metoprolol Tartrate 25 Mg Tablet 1 Tab PO BID 03/21/20 Reported Protonix (Pantoprazole Sodium) 40 Mg Tablet. 40 Mg PO DAILYAC 03/21/[address] of abd 1. Findings suggest of cystitis with a Bernard catheter in place. 2. Although the stomach is underdistended, there is gastric wall thickening that is suspicious for an underlying pathologic process. Cannot confidently exclude ischemia. 3. Nonspecific soft tissue stranding in the left upper quadrant mesentery, compatible with mesenteric edema. This also could be an early sign of ischemic bowel in the appropriate clinical context. Impression . 1. Acute respiratory failure secondary to sepsis. 2. Sepsis, likely contribution could be ischemic bowel /urinary tract infection .she has Clostridium difficile colitis/now likely Ischemic colitis Although, lipase is elevated, but abdominal exam is benign and pancreatitis would be less likely in the differential diagnosis 3. No significant tobacco history. 4. Severe metabolic acidosis secondary to sepsis./ suspected ischemic bowel 5. Acute kidney injury. 6. Increased lipase level. GI is following. 7. Abnormal CT abdomen and pelvis with haziness in the peripancreatic fat, nonspecific. Right upper lobe and left lower lobe partly solid nodules, which were 6 mm in size and could be inflammatory. 8. Cholelithiasis. Plan . 1. I have discussed with the patients and daughter, RN, RT . she remains critically ill 2. BiPAP to help her work of breathing as she is still very acidotic, setting reviewed 3. follow gi recommendations 4. IV hydration. 5. Broad-spectrum antibiotics per ID 6. Follow GI and General Surgery recommendations.d/w surgery [employer] 7. Follow all cultures. 8. Stool for Clostridium difficile. she has been suffering from it since many months. 9. ct abdomen/pelvis reviewed 10. monitor lipase ans lactic acid YARON BURRELL MD Mar 23, 2020 09:52
--- NOTE | 2020-03-23 10:25 | PDOC ---
G I PROGRESS NOTE Reason for Follow-up ABd pain/sepsis Subjective Unresponsive Physical Exam Lungs decreased BS CV S1 S2 ABD hypoastive bs, soft Review of Relevant I have reviewed the following items paula (where applicable) has been applied. Labs Laboratory Tests Test 03/21/20 14:43 03/21/20 23:29 03/22/20 08:00 03/22/20 08:10 Glucose (Fingerstick) 150 mg/dL (70-99) 191 mg/dL (70-99) O2 Saturation 96 % (92-99) Arterial Blood pH 7.19 (7.35-7.45) Arterial Blood pCO2 at Patient Temp 20 mmHg (35-46) Arterial Blood pO2 at Patient Temp 111 mmHg (65-108) Arterial Blood HCO3 8 mmol/L (21-28) Arterial Blood Base Excess -19 mmol/L (-3-3) FiO2 40% 07/03 r16 Sodium Level 149 mmol/L (136-145) Potassium Level 4.4 mmol/L (3.5-5.1) Chloride Level 119 mmol/L (98-107) Carbon Dioxide Level 9 mmol/L (21-32) Anion Gap 21 (6-14) Blood Urea Nitrogen 49 mg/dL (7-20) Creatinine 1.6 mg/dL (0.6-1.0) Estimated GFR (Cockcroft-Gault) 31.2 BUN/Creatinine Ratio 31 (6-20) Glucose Level 188 mg/dL (70-99) Calcium Level 8.2 mg/dL (8.5-10.1) Total Bilirubin 0.4 mg/dL (0.2-1.0) Aspartate Amino Transf (AST/SGOT) 35 U/L (15-37) Alanine Aminotransferase (ALT/SGPT) 24 U/L (14-59) Alkaline Phosphatase 65 U/L (46-116) Total Protein 5.7 g/dL (6.4-8.2) Albumin 2.8 g/dL (3.4-5.0) Albumin/Globulin Ratio 1.0 (1.0-1.7) Amylase Level 80 U/L (25-115) Lipase 371 U/L (73-393) Test 03/22/20 11:00 03/23/20 04:40 Lactic Acid Level 1.8 mmol/L (0.4-2.0) White Blood Count 11.9 x10^3/uL (4.0-11.0) Red Blood Count 2.54 x10^6/uL (3.50-5.40) Hemoglobin 8.5 g/dL (12.0-15.5) Hematocrit 27.6 % (36.0-47.0) Mean Corpuscular Volume 109 fL (79-100) Mean Corpuscular Hemoglobin 33 pg (25-35) Mean Corpuscular Hemoglobin Concent 31 g/dL (31-37) Red Cell Distribution Width 22.5 % (11.5-14.5) Platelet Count 181 x10^3/uL (140-400) Neutrophils (%) (Auto) 92 % (31-73) Lymphocytes (%) (Auto) 3 % (24-48) Monocytes (%) (Auto) 5 % (0-9) Eosinophils (%) (Auto) 0 % (0-3) Basophils (%) (Auto) 0 % (0-3) Neutrophils # (Auto) 10.9 x10^3/uL (1.8-7.7) Lymphocytes # (Auto) 0.4 x10^3/uL (1.0-4.8) Monocytes # (Auto) 0.6 x10^3/uL (0.0-1.1) Eosinophils # (Auto) 0.0 x10^3/uL (0.0-0.7) Basophils # (Auto) 0.0 x10^3/uL (0.0-0.2) Laboratory Tests Test 03/22/20 11:00 03/23/20 04:40 Lactic Acid Level 1.8 mmol/L (0.4-2.0) White Blood Count 11.9 x10^3/uL (4.0-11.0) Red Blood Count 2.54 x10^6/uL (3.50-5.40) Hemoglobin 8.5 g/dL (12.0-15.5) Hematocrit 27.6 % (36.0-47.0) Mean Corpuscular Volume 109 fL (79-100) Mean Corpuscular Hemoglobin 33 pg (25-35) Mean Corpuscular Hemoglobin Concent 31 g/dL (31-37) Red Cell Distribution Width 22.5 % (11.5-14.5) Platelet Count 181 x10^3/uL (140-400) Neutrophils (%) (Auto) 92 % (31-73) Lymphocytes (%) (Auto) 3 % (24-48) Monocytes (%) (Auto) 5 % (0-9) Eosinophils (%) (Auto) 0 % (0-3) Basophils (%) (Auto) 0 % (0-3) Neutrophils # (Auto) 10.9 x10^3/uL (1.8-7.7) Lymphocytes # (Auto) 0.4 x10^3/uL (1.0-4.8) Monocytes # (Auto) 0.6 x10^3/uL (0.0-1.1) Eosinophils # (Auto) 0.0 x10^3/uL (0.0-0.7) Basophils # (Auto) 0.0 x10^3/uL (0.0-0.2) Microbiology 03/21/20 Blood Culture - Preliminary, Resulted NO GROWTH AFTER 1 DAY 03/21/20 Urine Culture - Final, Complete Medications Current Medications Sodium Chloride 1,000 ml @ 75 mls/hr [id number] IV Last administered on 03/22/20at 09:38; Start 03/20/20 at 18:00 Piperacillin Sod/ Tazobactam Sod (Zosyn Per Pharmacy) 1 each PRN DAILY PRN MC SEE COMMENTS; Start 03/20/20 at 18:00; Stop 03/21/20 at 12:07; Status DC Vancomycin HCl (Vanco Per Pharmacy) 1 each PRN DAILY PRN MC SEE COMMENTS Last administered on 03/21/20at 11:32; Start 03/20/20 at 18:00; Stop 03/21/20 at 12:08; Status DC Ondansetron HCl (Zofran) 4 mg PRN Q6HRS PRN IVP NAUSEA/VOMITING; Start 03/20/20 at 18:00 Morphine Sulfate (Morphine Sulfate) 2 mg PRN Q2HR PRN IV PAIN; Start 03/20/20 at 18:00 Piperacillin Sod/ Tazobactam Sod 2.25 gm/Sodium Chloride 50 ml @ 100 mls/hr Q6HRS IV Last administered on 03/21/20at 05:32; Start 03/20/20 at 19:00; Stop 03/21/20 at 12:04; Status DC Vancomycin HCl 1.25 gm/Sodium Chloride 250 ml @ 167 mls/hr 1X ONCE IV Last administered on 03/20/20at 20:38; Start 03/20/20 at 20:00; Stop 03/20/20 at 21:29; Status DC Vancomycin HCl 1 gm/Sodium Chloride 250 ml @ 250 mls/hr Q48H IV ; Start 03/22/20 at 20:00; Stop 03/21/20 at 12:04; Status DC Vancomycin HCl (Vancomycin Trough Level) 1 each 1X ONCE MC ; Start 03/24/20 at 19:30; Stop 03/21/20 at 12:08; Status DC Albuterol/ Ipratropium (Duoneb) 3 ml RTQID NEB Last administered on 03/23/20at 08:48; Start 03/21/20 at 08:15 Budesonide (Pulmicort) 0.5 mg RTBID NEB Last administered on 03/23/20at 08:49; Start 03/21/20 at 08:15 Albuterol Sulfate (Ventolin Neb Soln) 2.5 mg PRN Q4HRS PRN NEB SHORTNESS OF BREATH; Start 03/21/20 at 08:15 Sodium Bicarbonate (Sodium Bicarb Adult 8.4% Syr) 50 meq 1X ONCE IV Last administered on 03/21/20at 08:48; Start 03/21/20 at 08:15; Stop 03/21/20 at 08:32; Status DC Famotidine (Pepcid Vial) 20 mg QHS IVP Last administered on 03/21/20at 20:55; Start 03/21/20 at 21:00; Stop 03/22/20 at 14:51; Status DC Meropenem 500 mg/ Sodium Chloride 50 ml @ 100 mls/hr Q12HR IV Last administered on 03/23/20at 09:37; Start 03/21/20 at 21:00 Linezolid/Dextrose 300 ml @ 300 mls/hr Q12HR IV Last administered on 03/23/20at 09:06; Start 03/21/20 at 21:00 Vancomycin HCl (Vancomycin Oral Solution) 125 mg [id number] PO Last administered on 03/21/20at 21:48; Start 03/21/20 at 13:00 Atorvastatin Calcium (Lipitor) 20 mg QHS PO ; Start 03/21/20 at 21:00 Metoprolol Tartrate (Lopressor) 25 mg BID PO ; Start 03/21/20 at 21:00; Stop 03/21/20 at 22:19; Status DC Amlodipine Besylate (Norvasc) 2.5 mg DAILY PO ; Start 03/21/20 at 15:30 Ascorbic Acid (Vitamin C) 500 mg BID PO ; Start 03/21/20 at 21:00 Non-Formulary Medication (Cevimeline Hcl ) 30 mg TID PO ; Start 03/21/20 at 21:00; Stop 03/21/20 at 17:37; Status DC Heparin Sodium (Porcine) (Heparin Sodium) 5,000 unit Q8HRS SQ Last administered on 03/23/20at 06:19; Start 03/21/20 at 15:30 Non-Formulary Medication (Cevimeline Hcl ) 30 mg TID PO ; Start 03/21/20 at 21:00 Metoprolol Tartrate (Lopressor Vial) 10 mg BID IVP Last administered on 03/23/20at 09:30; Start 03/21/20 at 22:30 Sodium Bicarbonate 150 meq/Dextrose 1,150 ml @ 150 mls/hr Q7H40M IV Last administered on 03/23/20at 09:04; Start 03/22/20 at 10:00 Sodium Bicarbonate (Sodium Bicarb Adult 8.4% Syr) 100 meq 1X ONCE IV Last administered on 03/22/20at 09:51; Start 03/22/20 at 10:00; Stop 03/22/20 at 10:01; Status DC Pantoprazole Sodium (PROTONIX VIAL for IV PUSH) 40 mg BID IVP Last administered on 03/23/20at 09:10; Start 03/22/20 at 21:00 Active Scripts Active Reported Methenamine Mandelate 1 Gm Tablet 1 Tab PO BID 30 Days Metformin Hcl 500 Mg Tablet 500 Mg PO TID Cevimeline Hcl 30 Mg Capsule 30 Mg PO TID Vitamin C (Ascorbic Acid) 500 Mg Capsule.er 500 Mg PO BID Gemfibrozil 600 Mg Tablet 1 Tab PO DAILY Furosemide 20 Mg Tablet 1 Tab PO DAILY Atorvastatin Calcium 20 Mg Tablet 1 Tab PO DAILY Sildenafil (Sildenafil Citrate) 20 Mg Tablet 20 Mg PO TID Amlodipine Besylate 2.5 Mg Tablet 2.5 Mg PO DAILY Trospium Chloride 20 Mg Tablet 20 Mg PO BID Metoprolol Tartrate 25 Mg Tablet 1 Tab PO BID Protonix (Pantoprazole Sodium) 40 Mg Tablet.dr 40 Mg PO DAILYAC Vitals/I & O Vital Sign - Last 24 Hours 03/22/20 03/22/20 03/22/20 03/22/20 11:00 11:45 12:00 12:00 Temp 98.8 98.8 Pulse 106 104 B/P (MAP) 141/83 (102) 147/96 (113) Pulse Ox 100 100 100 O2 Delivery BiPAP/CPAP BiPAP/CPAP BiPAP/CPAP Bi-pap 03/22/20 03/22/20 03/22/20 03/22/20 13:00 14:00 15:00 15:24 Pulse 110 110 108 Resp B/P (MAP) 145/62 (89) 146/64 (91) 131/66 (87) Pulse Ox 100 100 100 100 O2 Delivery BiPAP/CPAP BiPAP/CPAP BiPAP/CPAP BiPAP/CPAP 03/22/20 03/22/20 03/22/20 03/22/20 16:00 16:00 17:00 18:00 Temp 98.9 98.9 Pulse 112 108 110 B/P (MAP) 126/58 (80) 126/58 (80) 165/74 (104) Pulse Ox 100 100 100 O2 Delivery BiPAP/CPAP Bi-pap BiPAP/CPAP BiPAP/CPAP 03/22/20 03/22/20 03/22/20 03/22/20 19:00 19:45 19:58 20:00 Pulse 112 111 B/P (MAP) 168/78 (108) 160/88 (112) Pulse Ox 100 100 100 O2 Delivery BiPAP/CPAP Bi-pap BiPAP/CPAP BiPAP/CPAP 03/22/20 03/22/20 03/22/20 03/22/20 21:00 21:20 22:00 23:00 Pulse 109 110 96 98 Resp B/P (MAP) 189/102 (131) 190/76 147/61 (89) 140/74 (96) Pulse Ox 100 100 100 O2 Delivery BiPAP/CPAP BiPAP/CPAP BiPAP/CPAP 03/22/20 03/23/20 03/23/2003/23/20 23:38 00:01 00:16 01:00 Temp 97.6 97.6 Pulse 98 98 Resp B/P (MAP) 163/82 (109) 157/79 (105) Pulse Ox 100 100 100 O2 Delivery BiPAP/CPAP BiPAP/CPAP Bi-pap BiPAP/CPAP 03/23/20 03/23/20 03/23/20 03/23/20 02:00 02:50 03:00 04:00 Pulse 97 97 99 Resp 26 B/P (MAP) 147/75 (99) 153/77 (102) 160/76 (104) Pulse Ox 100 100 100 100 O2 Delivery BiPAP/CPAP BiPAP/CPAP BiPAP/CPAP BiPAP/CPAP 03/23/20 03/23/20 03/23/20 03/23/20 04:00 05:00 05:15 06:11 Pulse 100 99 Resp B/P (MAP) 179/92 (121) 169/82 (111) Pulse Ox 100 100 100 O2 Delivery Bi-pap BiPAP/CPAP BiPAP/CPAP BiPAP/CPAP 03/23/20 03/23/20 03/23/20 03/23/20 07:15 08:05 08:15 08:49 Temp 99.0 99.1 99.0 99.1 Pulse 98 99 Resp B/P (MAP) 162/74 (103) 136/75 (95) Pulse Ox 100 100 100 O2 Delivery BiPAP/CPAP BiPAP/CPAP Bi-pap BiPAP/CPAP 03/23/20 03/23/20 03/23/20 09:00 09:30 10:00 Pulse 102 102 107 Resp 20 B/P (MAP) 141/79 (99) 141/79 142/63 (89) Pulse Ox 100 90 O2 Delivery BiPAP/CPAP Nasal Cannula O2 Flow Rate 3.0 Intake and Output 03/22/20 03/22/20 03/23/20 15:00 23:00 07:00 Intake Total 350 ml 2138 ml 1852 ml Output Total 150 ml 235 ml 200 ml Balance 200 ml 1903 ml 1652 ml Problem List Lactic acidosis- with emphysematous gastritis, medical therapy as patient poor surgical candiate, prognosis guarded, family informed of dire condition, CPM Justicifation of Admission Dx: Justifications for Admission: Justification of Admission Dx: Yes Respiratory Failure: Severe Resp Distress SPENSER MAIN MD Mar 23, 2020 10:25
[2020-03-23] MEDS: IV NORMAL SALINE 1000ML BAG 1,000 ML IV SCH (10:43)
--- NOTE | 2020-03-23 11:01 | PDOC ---
[employer] PROGRESS NOTE Date of Service DOS: DATE: 03/23/20 TIME: 11:00 Chief Complaint Chief Complaint Acute encephalopathy - likely metabolic from pancreatitis, sepsis. Sepsis -likely secondary to UTI and C. difficile, will consult infectious diseases for assistance. UTI (urinary tract infection) Acute Pancreatitis Left renal mass Pulmonary nodules H/o asthma Cholelithiasis Intractable Abdominal pain History of recurrent Clostridium difficile. Acute hypoxic respiratory failure Acute on chronic Anemia Weight loss History of Sjogren's Diabetes mellitus Severe metabolic acidosis Acute kidney injury Elevated BNP History of Present Illness History of Present Illness 03/23/2020 Patient seen and examined in the ICU Her niece and are present Discussed with RN Chart reviewed She remains critically ill She is on IV Zyvox and meropenem 03/22/2020 Patient seen and examined in the ICU He is on BiPAP with 40% FiO2 Also on IV Zyvox Tachycardic Chart reviewed Discussed with case management Discussed with RN Vitals/I&O Vitals/I&O: Vital Signs Date Time Temp Pulse Resp B/P (MAP) Pulse Ox O2 Delivery O2 Flow Rate FiO2 03/23/20 10:00 107 20 142/63 (89) 90 Nasal Cannula 3.0 03/23/20 08:05 99.1 99.1 I & O0 03/22/20 03/22/20 03/23/20 15:00 23:00 07:00 Intake Total 350 ml 2138 ml 1852 ml Output Total 150 ml 235 ml 200 ml Balance 200 ml 1903 ml 1652 ml Physical Exam Physical Exam: GENERAL: Lethargic, weak-appearing female, on BiPAP. HEENT: Anicteric. NECK: Supple. LUNGS: Decreased breath sounds at the bases. HEART: S1, S2. No gallops or murmurs. ABDOMEN: Soft, nontender, mildly distended. GENITOURINARY: Bernard in place. EXTREMITIES: No edema, no cyanosis. DERMATOLOGIC: Warm, dry. No generalized rash. Multiple bruises. CENTRAL NERVOUS SYSTEM: Alert, awake, extremely weak and lethargic. General: Other (Minimal responsiveness) Heart: Regular rate Lungs: Other (decrease bs) Abdomen: Normal bowel sounds, Soft, No tenderness Skin: No rashes, No breakdown Labs Labs: Laboratory Tests Test 03/23/20 04:40 White Blood Count 11.9 x10^3/uL (4.0-11.0) Red Blood Count 2.54 x10^6/uL (3.50-5.40) Hemoglobin 8.5 g/dL (12.0-15.5) Hematocrit 27.6 % (36.0-47.0) Mean Corpuscular Volume 109 fL (79-100) Mean Corpuscular Hemoglobin 33 pg (25-35) Mean Corpuscular Hemoglobin Concent 31 g/dL (31-37) Red Cell Distribution Width 22.5 % (11.5-14.5) Platelet Count 181 x10^3/uL (140-400) Neutrophils (%) (Auto) 92 % (31-73) Lymphocytes (%) (Auto) 3 % (24-48) Monocytes (%) (Auto) 5 % (0-9) Eosinophils (%) (Auto) 0 % (0-3) Basophils (%) (Auto) 0 % (0-3) Neutrophils # (Auto) 10.9 x10^3/uL (1.8-7.7) Lymphocytes # (Auto) 0.4 x10^3/uL (1.0-4.8) Monocytes # (Auto) 0.6 x10^3/uL (0.0-1.1) Eosinophils # (Auto) 0.0 x10^3/uL (0.0-0.7) Basophils # (Auto) 0.0 x10^3/uL (0.0-0.2) Assessment and Plan Assessmemt and Plan Acute encephalopathy - likely metabolic from pancreatitis, sepsis. Sepsis -likely secondary to UTI and C. difficile, will consult infectious diseases for assistance. UTI (urinary tract infection) -started on empiric vancomycin, Rocephin and Zosyn by ED, will ID consulted. Acute Pancreatitis -unclear etiology, may be due to sepsis. GI consulted for assistance. Left renal mass - will obtain renal ultrasound when she is more stable. Pulmonary nodules - concerning for solid mass bilaterally. Pulmonology consulted, needs close f/u. H/o asthma - nebulizers ordered Cholelithiasis - general surgery following Intractable Abdominal pain -lateral portion had a physical exam. Concerning for potential ischemic colitis, however pancreatitis does not possible as well. GI and general surgery History of recurrent Clostridium difficile. Acute hypoxic respiratory failure, on BiPAP. Acute on chronic Anemia - possibly GI bleed, will monitor. Weight loss - likely from chronic and acid disease History of Sjogren's - worsening Diabetes mellitus - Sliding scale Severe metabolic acidosis - likely from sepsis, will need close monitoring Acute kidney injury - vasomotor nephropathy from sepsis, will hydrate Elevated BNP - does have cardiology at [facility]. Will consult cardiology for further recommendations as her fluid status is difficult to currently interpret and with sepsis I would err on giving fluids as she is on BIPAP Home meds DVT prophylaxis Full code (partial) Appreciate subspecialist input Prognosis guarded Comment Review of Relevant I have reviewed the following items paula (where applicable) has been applied. Medications: Current Medications Medications (Trade) Dose Ordered Sig/Bridget Route PRN Reason Start Time Stop Time Status Last Admin Dose Admin Pantoprazole Sodium (PROTONIX VIAL for IV PUSH) 40 mg BID IVP 03/22/20 21:00 03/23/20 09:10 Justifications for Admission Other Justification CLAUDIA YI III DO Mar 23, 2020 11:01
[2020-03-23] MEDS ORDERED: MORPHINE SULFATE 2 MG/ML VIAL. IV PRN (15:15)
[2020-03-23] MEDS: MORPHINE SULFATE 2 MG/ML VIAL. IV PRN ×2 (15:28→20:28)
[2020-03-23] MEDS ORDERED: SCOPOLAMINE 1.5MG PATCH. TD SCH (16:00)
--- NOTE | 2020-03-23 16:05 | NUR ---
This RN spoke with Tabby, pt's daughter and Phong, pt's in regards to pt's POC. Decision made to make pt comfort care. This RN had a thorough discussion with Tabby, daughter and Phong, on what comfort care entails. All further questions addressed. Family verbalizes understanding and wants to follow through with comfort care measures. This RN paged Dr. Hinson and received orders for comfort care, code status (DNR), and medications. Refer to EMAR for details. Family in agreement on POC. Oxygen removed from pt, suctioning provided. Will continue to monitor pt and provide support.
--- NOTE | 2020-03-23 17:30 | NUR ---
This RN transferred pt from room 108 to room 436 by bed.
--- NOTE | 2020-03-23 18:04 | NUR ---
Patient arrived on the unit at 1725 via bed accompanied by the patient's daughter and . She's alert, non conversant, on room air. Spoke with the family about comfort care. They did not voice any concerns at the moment. Patient's family reassured.
[2020-03-23 19:42] LABS: FIO2 ABG 50
[2020-03-24 07:00] VITALS: BP 175/97
--- NOTE | 2020-03-24 08:17 | PDOC ---
Infectious Disease Note Subjective: Subjective Patient lethargic,does not respond to any questions Vital Signs: Vital Signs Vital Signs Date Time Temp Pulse Resp B/P (MAP) Pulse Ox O2 Delivery O2 Flow Rate FiO2 03/24/20 07:00 97.8 111 18 175/97 (123) 96 Room Air 97.8 03/23/20 20:58 3.0 Physical Exam: PHYSICAL EXAM GENERAL: Lethargic, weak-appearing female, on BiPAP. HEENT: Anicteric. NECK: Supple. LUNGS: Decreased breath sounds at the bases. HEART: S1, S2. No gallops or murmurs. ABDOMEN: Soft, nontender, mildly distended. GENITOURINARY: Bernard in place. EXTREMITIES: No edema, no cyanosis. DERMATOLOGIC: Warm, dry. No generalized rash. Multiple bruises. CENTRAL NERVOUS SYSTEM: Alert, awake, extremely weak and lethargic. Medications: Inpatient Meds: Current Medications Medications (Trade) Dose Ordered Sig/Bridget Start Time Stop Time Status Last Admin Dose Admin Albuterol Sulfate (Ventolin Neb Soln) 2.5 mg PRN Q4HRS PRN 03/21/20 08:15 03/23/20 15:08 DC Albuterol/ Ipratropium (Duoneb) 3 ml RTQID 03/21/20 08:15 03/23/20 15:08 DC 03/23/20 12:15 3 ML Amlodipine Besylate (Norvasc) 2.5 mg DAILY 03/21/20 15:30 03/23/20 15:08 DC Ascorbic Acid (Vitamin C) 500 mg BID 03/21/20 21:00 03/23/20 15:08 DC Atorvastatin Calcium (Lipitor) 20 mg QHS 03/21/20 21:00 03/23/20 15:08 DC Budesonide (Pulmicort) 0.5 mg RTBID 03/21/20 08:15 03/23/20 15:08 DC 03/23/20 08:49 0.5 MG Famotidine (Pepcid Vial) 20 mg QHS 03/21/20 21:00 03/22/20 14:51 DC 03/21/20 20:55 20 MG Heparin Sodium (Porcine) (Heparin Sodium) 5,000 unit Q8HRS 03/21/20 15:30 03/23/20 15:08 DC 03/23/20 06:19 5,000 UNIT Linezolid/Dextrose 300 ml @ 300 mls/hr Q12HR 03/21/20 21:00 03/23/20 15:08 DC 03/23/20 09:06 300 MLS/HR Lorazepam (Ativan Inj) 4 mg PRN Q15MIN PRN 03/23/20 15:15 Meropenem 500 mg/ Sodium Chloride 50 ml @ 100 mls/hr Q12HR 03/21/20 21:00 03/23/20 15:08 DC 03/23/20 09:37 100 MLS/HR Metoprolol Tartrate (Lopressor Vial) 10 mg BID 03/21/20 22:30 03/23/20 15:08 DC 03/23/20 09:30 5 MG Metoprolol Tartrate (Lopressor) 25 mg BID 03/21/20 21:00 03/21/20 22:19 DC Morphine Sulfate (Morphine Sulfate) 2 mg PRN Q1HR PRN 03/23/20 15:15 03/23/20 20:28 2 MG Non-Formulary Medication (Cevimeline Hcl ) 30 mg TID 03/21/20 21:00 03/23/20 15:08 DC Ondansetron HCl (Zofran) 4 mg PRN Q6HRS PRN 03/20/20 18:00 03/23/20 15:08 DC Pantoprazole Sodium (PROTONIX VIAL for IV PUSH) 40 mg BID 03/22/20 21:00 03/23/20 15:08 DC 03/23/20 09:10 40 MG Piperacillin Sod/ Tazobactam Sod (Zosyn Per Pharmacy) 1 each PRN DAILY PRN 03/20/20 18:00 03/21/20 12:07 DC Piperacillin Sod/ Tazobactam Sod 2.25 gm/Sodium Chloride 50 ml @ 100 mls/hr Q6HRS 03/20/20 19:00 03/21/20 12:04 DC 03/21/20 05:32 100 MLS/HR Scopolamine (Transderm-Scop) 1 patch Q3DAYS 03/23/20 16:00 03/23/20 16:42 1 PATCH Sodium Bicarbonate 150 meq/Dextrose 1,150 ml @ 150 mls/hr [id number] 03/22/20 10:00 03/23/20 15:08 DC 03/23/20 09:04 150 MLS/HR Sodium Bicarbonate (Sodium Bicarb Adult 8.4% Syr) 100 meq 1X ONCE 03/22/20 10:00 03/22/20 10:01 DC 03/22/20 09:51 100 MEQ Sodium Chloride 1,000 ml @ 75 mls/hr [id number] 03/20/20 18:00 03/23/20 15:08 DC 03/22/20 09:38 75 MLS/HR Vancomycin HCl (Vanco Per Pharmacy) 1 each PRN DAILY PRN 03/20/20 18:00 03/21/20 12:08 DC 03/21/20 11:32 1 EACH Vancomycin HCl (Vancomycin Trough Level) 1 each 1X ONCE 03/24/20 19:30 03/21/20 12:08 DC Vancomycin HCl (Vancomycin Oral Solution) 125 mg [id number] 03/21/20 13:00 03/23/20 15:08 DC 03/21/20 21:48 125 MG Vancomycin HCl 1.25 gm/Sodium Chloride 250 ml @ 167 mls/hr 1X ONCE 03/20/20 20:00 03/20/20 21:29 DC 03/20/20 20:38 167 MLS/HR Vancomycin HCl 1 gm/Sodium Chloride 250 ml @ 250 mls/hr Q48H 03/22/20 20:00 03/21/20 12:04 DC Objective: Assessment: 1. Leukocytosis.source likely gi, possible ischemia 2. 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 Urinary tract infection.UC < 40K e coli with history of recurrent UTI 3. Abdominal pain. 4. History of recurrent Clostridium difficile. Last p.o. vancomycin was about a month ago 5. Altered mental status. 6. Acute hypoxic respiratory failure, on BiPAP. 7. Anemia. 8. Pancreatitis, cholelithiasis. 9. Left renal mass. 10. Weight loss. 11. History of Sjogren's. 12. Diabetes mellitus. 13. Severe metabolic acidosis. Plan: Plan of Care Pt been transitioned to comfort measures Discussed with nursing staff INES AGUIRRE MD Mar 24, 2020 08:17
--- NOTE | 2020-03-24 08:27 | PDOC ---
SURGICAL PROGRESS NOTE DATE: 03/24/20 TIME: 08:25 Subjective Patient sleeping in bed not arousable does not communicate Vital Signs Vital Signs Date Time Temp Pulse Resp B/P (MAP) Pulse Ox O2 Delivery O2 Flow Rate FiO2 03/24/20 07:00 97.8 111 18 175/97 (123) 96 Room Air 97.8 03/23/20 20:58 3.0 I&O Intake and Output 03/24/20 07:00 Intake Total 1718 ml Output Total 324 ml Balance 1394 ml Intake Oral 0 ml IV Total 1718 ml Output Urine Total 324 ml PATIENT HAS A PATEL: Yes General: Other (Essentially nonresponsive to verbal stimuli) Abdomen: Soft, No tenderness Labs Laboratory Tests Test 03/22/20 11:00 03/23/20 04:40 03/23/20 08:00 Lactic Acid Level 1.8 mmol/L (0.4-2.0) White Blood Count 11.9 x10^3/uL (4.0-11.0) Red Blood Count 2.54 x10^6/uL (3.50-5.40) Hemoglobin 8.5 g/dL (12.0-15.5) Hematocrit 27.6 % (36.0-47.0) Mean Corpuscular Volume 109 fL (79-100) Mean Corpuscular Hemoglobin 33 pg (25-35) Mean Corpuscular Hemoglobin Concent 31 g/dL (31-37) Red Cell Distribution Width 22.5 % (11.5-14.5) Platelet Count 181 x10^3/uL (140-400) Neutrophils (%) (Auto) 92 % (31-73) Lymphocytes (%) (Auto) 3 % (24-48) Monocytes (%) (Auto) 5 % (0-9) Eosinophils (%) (Auto) 0 % (0-3) Basophils (%) (Auto) 0 % (0-3) Neutrophils # (Auto) 10.9 x10^3/uL (1.8-7.7) Lymphocytes # (Auto) 0.4 x10^3/uL (1.0-4.8) Monocytes # (Auto) 0.6 x10^3/uL (0.0-1.1) Eosinophils # (Auto) 0.0 x10^3/uL (0.0-0.7) Basophils # (Auto) 0.0 x10^3/uL (0.0-0.2) O2 Saturation 98 % (92-99) Arterial Blood pH 7.47 (7.35-7.45) Arterial Blood pCO2 at Patient Temp 30 mmHg (35-46) Arterial Blood pO2 at Patient Temp 132 mmHg (65-108) Arterial Blood HCO3 21 mmol/L (21-28) Arterial Blood Base Excess -2 mmol/L (-3-3) FiO2 50 Assessment/Plan Multiple medical problems sepsis likely GI source changes in her stomach on CT scan concerning for emphysematous gastritis History of C. difficile, cholelithiasis although no evidence of cholecystitis Agree with supportive care treat medically prohibitive surgical risk Justicifation of Admission Dx: Justifications for Admission: Justification of Admission Dx: Yes Respiratory Failure: Severe Resp Distress GLADYS CROW MD Mar 24, 2020 08:27
[2020-03-24] MEDS: MORPHINE SULFATE 2 MG/ML VIAL. IV PRN ×2 (10:09→16:37)
--- NOTE | 2020-03-24 10:34 | PDOC ---
PULMONARY PROGRESS NOTES DATE: 03/24/20 TIME: 10:32 Subjective on 02 family decided on comfort care. on unresponsive appears comfortable Vitals Vital Signs Date Time Temp Pulse Resp B/P (MAP) Pulse Ox O2 Delivery O2 Flow Rate FiO2 03/24/20 10:09 20 Nasal Cannula 2.0 03/24/20 07:00 97.8 111 175/97 (123) 96 97.8 Comments ros as mentioned as above other sys otherwise neg on alert General: Lethargic HEENT: Other (nc at perrl nose throat clear neck no lad no thyromegaly) Lungs: Other (decrease bs) Cardiovascular: S1 Abdomen: Soft, Other (tender no mass) Extremities: No Edema Skin: Warm Labs Laboratory Tests Test 03/22/20 11:00 03/23/20 04:40 03/23/20 08:00 Lactic Acid Level 1.8 mmol/L (0.4-2.0) White Blood Count 11.9 x10^3/uL (4.0-11.0) Red Blood Count 2.54 x10^6/uL (3.50-5.40) Hemoglobin 8.5 g/dL (12.0-15.5) Hematocrit 27.6 % (36.0-47.0) Mean Corpuscular Volume 109 fL (79-100) Mean Corpuscular Hemoglobin 33 pg (25-35) Mean Corpuscular Hemoglobin Concent 31 g/dL (31-37) Red Cell Distribution Width 22.5 % (11.5-14.5) Platelet Count 181 x10^3/uL (140-400) Neutrophils (%) (Auto) 92 % (31-73) Lymphocytes (%) (Auto) 3 % (24-48) Monocytes (%) (Auto) 5 % (0-9) Eosinophils (%) (Auto) 0 % (0-3) Basophils (%) (Auto) 0 % (0-3) Neutrophils # (Auto) 10.9 x10^3/uL (1.8-7.7) Lymphocytes # (Auto) 0.4 x10^3/uL (1.0-4.8) Monocytes # (Auto) 0.6 x10^3/uL (0.0-1.1) Eosinophils # (Auto) 0.0 x10^3/uL (0.0-0.7) Basophils # (Auto) 0.0 x10^3/uL (0.0-0.2) O2 Saturation 98 % (92-99) Arterial Blood pH 7.47 (7.35-7.45) Arterial Blood pCO2 at Patient Temp 30 mmHg (35-46) Arterial Blood pO2 at Patient Temp 132 mmHg (65-108) Arterial Blood HCO3 21 mmol/L (21-28) Arterial Blood Base Excess -2 mmol/L (-3-3) FiO2 50 Medications Active Scripts Medications Dose Route/Sig Max Daily Dose Days Date Category Methenamine Mandelate 1 Gm Tablet 1 Tab PO BID 30 03/21/20 Reported Metformin Hcl 500 Mg Tablet 500 Mg PO TID 03/21/20 Reported Cevimeline Hcl 30 Mg Capsule 30 Mg PO TID 03/21/20 Reported Vitamin C (Ascorbic Acid) 500 Mg Capsule.er 500 Mg PO BID 03/21/20 Reported Gemfibrozil 600 Mg Tablet 1 Tab PO DAILY 03/21/20 Reported Furosemide 20 Mg Tablet 1 Tab PO DAILY 03/21/20 Reported Atorvastatin Calcium 20 Mg Tablet 1 Tab PO DAILY 03/21/20 Reported Sildenafil (Sildenafil Citrate) 20 Mg Tablet 20 Mg PO TID 03/21/20 Reported Amlodipine Besylate 2.5 Mg Tablet 2.5 Mg PO DAILY 03/21/20 Reported Trospium Chloride 20 Mg Tablet 20 Mg PO BID 03/21/20 Reported Metoprolol Tartrate 25 Mg Tablet 1 Tab PO BID 03/21/20 Reported Protonix (Pantoprazole Sodium) 40 Mg Tablet.dr 40 Mg PO DAILYAC 03/21/[address] of abd 1. Findings suggest of cystitis with a Bernard catheter in place. 2. Although the stomach is underdistended, there is gastric wall thickening that is suspicious for an underlying pathologic process. Cannot confidently exclude ischemia. 3. Nonspecific soft tissue stranding in the left upper quadrant mesentery, compatible with mesenteric edema. This also could be an early sign of ischemic bowel in the appropriate clinical context. Impression . 1. Acute respiratory failure secondary to sepsis. 2. Sepsis, likely contribution could be ischemic bowel /urinary tract infection .she has Clostridium difficile colitis/now likely Ischemic colitis Although, lipase is elevated, but abdominal exam is benign and pancreatitis would be less likely in the differential diagnosis 3. No significant tobacco history. 4. Severe metabolic acidosis secondary to sepsis./ suspected ischemic bowel 5. Acute kidney injury. 6. Increased lipase level. GI is following. 7. Abnormal CT abdomen and pelvis with haziness in the peripancreatic fat, nonspecific. Right upper lobe and left lower lobe partly solid nodules, which were 6 mm in size and could be inflammatory. 8. Cholelithiasis. Plan . comfort care 02 ativan morphine support given to family will sign off but available for any help YARON BURRELL MD Mar 24, 2020 10:34
--- NOTE | 2020-03-24 10:49 | PDOC ---
[employer] PROGRESS NOTE Date of Service DOS: DATE: 03/24/20 TIME: 10:48 Chief Complaint Chief Complaint Acute encephalopathy - likely metabolic from pancreatitis, sepsis. Sepsis -likely secondary to UTI and C. difficile, will consult infectious diseases for assistance. UTI (urinary tract infection) Acute Pancreatitis Left renal mass Pulmonary nodules H/o asthma Cholelithiasis Intractable Abdominal pain History of recurrent Clostridium difficile. Acute hypoxic respiratory failure Acute on chronic Anemia Weight loss History of Sjogren's Diabetes mellitus Severe metabolic acidosis Acute kidney injury Elevated BNP History of Present Illness History of Present Illness 03/24/2020 Patient has been placed on comfort care measures. Discussed with and son, they wanted to pursue inpatient hospice. 03/23/2020 Patient seen and examined in the ICU Her niece and are present Discussed with RN Chart reviewed She remains critically ill She is on IV Zyvox and meropenem 03/22/2020 Patient seen and examined in the ICU He is on BiPAP with 40% FiO2 Also on IV Zyvox Tachycardic Chart reviewed Discussed with case management Discussed with RN Vitals/I&O Vitals/I&O: Vital Signs Date Time Temp Pulse Resp B/P (MAP) Pulse Ox O2 Delivery O2 Flow Rate FiO2 03/24/20 10:09 20 Nasal Cannula 2.0 03/24/20 07:00 97.8 111 175/97 (123) 96 97.8 I & O 03/23/20 03/23/20 03/24/20 15:00 23:00 07:00 Intake Total 777 ml 941 ml Output Total 174 ml 150 ml Balance 603 ml 941 ml -150 ml Physical Exam Physical Exam: GENERAL: Lethargic, weak-appearing female, on BiPAP. HEENT: Anicteric. NECK: Supple. LUNGS: Decreased breath sounds at the bases. HEART: S1, S2. No gallops or murmurs. ABDOMEN: Soft, nontender, mildly distended. GENITOURINARY: Bernard in place. EXTREMITIES: No edema, no cyanosis. DERMATOLOGIC: Warm, dry. No generalized rash. Multiple bruises. CENTRAL NERVOUS SYSTEM: Alert, awake, extremely weak and lethargic. General: Other (Essentially nonresponsive to verbal stimuli) Heart: Regular rate Lungs: Other (decrease bs) Abdomen: Soft, No tenderness Skin: No rashes, No breakdown Comment Review of Relevant I have reviewed the following items paula (where applicable) has been applied. Medications: Current Medications Medications (Trade) Dose Ordered Sig/Bridget Route PRN Reason Start Time Stop Time Status Last Admin Dose Admin Morphine Sulfate (Morphine Sulfate) 2 mg PRN Q1HR PRN IV MODERATE PAIN 03/23/20 15:15 03/24/20 10:09 Scopolamine (Transderm-Scop) 1 patch Q3DAYS TD 03/23/20 16:00 03/23/20 16:42 Justifications for Admission Other Justification MERRICK BABIN MD Mar 24, 2020 10:49
--- NOTE | 2020-03-27 17:11 | PDOC3 ---
Discharge Summary Visit Information Date of Admission: Mar 21, 2020 Date of Discharge: Mar 25, 2020 Final Diagnosis Sepsis, ischemic bowel, history of recurrent c. diff colitis, acute respiratory failure Brief Hospital Course Allergies Allergies Coded Allergies Type Severity Reaction Last Updated Verified MARQUIS Inhibitors Allergy Unknown 03/20/20 Yes Sulfa (Sulfonamide Antibiotics) Allergy Unknown 03/20/20 Yes ciprofloxacin Allergy Unknown 03/20/20 Yes glimepiride Allergy Unknown 03/20/20 Yes levofloxacin Allergy Unknown 03/20/20 Yes nitroglycerin Allergy Unknown 03/20/20 Yes Brief Hospital Course Ms. Fierro is a 80 old female who presented as a transfer from [facility] with sepsis, acute respiratory failure, ischemic bowel, elevated lipase suggestive of pancreatits, and recurrent C. diff colitis. Due to her critical il lness she was admitted to the ICU on vasopressors, broad spectrum antibiotics, and BiPAP. Consults were placed to Pulmonology, GI, General surgery, and Infectious Disease. Despite appropriate management, patient's prognosis remained poor, and she was transitioned to inpatient hospice on comfort care and on 03/25/2020. Discharge Information Condition at Discharge: / Disposition/Orders: No Active Prescriptions or Reported Meds Justicifation of Admission Dx: Justifications for Admission: Justification of Admission Dx: Yes Respiratory Failure: Severe Resp Distress MERRICK BABIN MD Mar 27, 2020 17:11
--- NOTE | 2020-04-03 15:24 | PDOC3 ---
Discharge Summary Visit Information Date of Admission: Mar 21, 2020 Date of Discharge: Mar 25, 2020 Final Diagnosis Discharge to hospice Brief Hospital Course Allergies Allergies Coded Allergies Type Severity Reaction Last Updated Verified MARQUIS Inhibitors Allergy Unknown 03/20/20 Yes Sulfa (Sulfonamide Antibiotics) Allergy Unknown 03/20/20 Yes ciprofloxacin Allergy Unknown 03/20/20 Yes glimepiride Allergy Unknown 03/20/20 Yes levofloxacin Allergy Unknown 03/20/20 Yes nitroglycerin Allergy Unknown 03/20/20 Yes Brief Hospital Course Ms. Fierro is a 80 old female who presented as a transfer from [facility] with sepsis, acute respiratory failure, ischemic bowel, elevated lipase suggestive of pancreatits, and recurrent C. diff colitis. Due to her critical illness she was admitted to the ICU on vasopressors, broad spectrum antibiotics, and BiPAP. Consults were placed to Pulmonology, GI, General surgery, and Infectious Disease. Despite appropriate management, patient's prognosis remained poor, and she was transitioned to inpatient hospice on comfort care. Discharge Information Condition at Discharge: Stable Disposition/Orders: Other No Active Prescriptions or Reported Meds Justicifation of Admission Dx: Justifications for Admission: Justification of Admission Dx: Yes Respiratory Failure: Severe Resp Distress MERRICK BABIN MD Apr 03, 2020 15:24
== END 2020-03-24 18:16 | disposition hospice, inpatient (51) | DRG 871 ==
LOC: 5 NORTH 17:09 → 1 WEST ICU 03-21 09:29 → 4 NORTH 03-23 17:39
PROVIDERS: ADMIT Internal Medicine; ATTEND Internal Medicine
PROC: 5A09457 Assistance with Respiratory Ventilation, 24-96 Consecutive Hours, Continuous Positive Airway Pressure (ICD-10-PCS; principal; 2020-03-21)
DX: A41.9 Sepsis, unspecified organism (principal); J96.01 Acute respiratory failure with hypoxia; K85.10 Biliary acute pancreatitis without necrosis or infection; N17.0 Acute kidney failure with tubular necrosis; N39.0 Urinary tract infection, site not specified; E87.2 Acidosis; E87.1 Hypo-osmolality and hyponatremia; A04.71 Enterocolitis due to Clostridium difficile, recurrent; G93.40 Encephalopathy, unspecified; E78.5 Hyperlipidemia, unspecified; K21.9 Gastro-esophageal reflux disease without esophagitis; I10 Essential (primary) hypertension; E11.9 Type 2 diabetes mellitus without complications; M35.00 Sjogren syndrome, unspecified; J45.909 Unspecified asthma, uncomplicated; N28.89 Other specified disorders of kidney and ureter; G89.29 Other chronic pain; I27.20 Pulmonary hypertension, unspecified; Z51.5 Encounter for palliative care; I70.0 Atherosclerosis of aorta; K80.20 Calculus of gallbladder without cholecystitis without obstruction; D64.9 Anemia, unspecified; E87.6 Hypokalemia; I25.10 Atherosclerotic heart disease of native coronary artery without angina pectoris; K29.60 Other gastritis without bleeding; R63.4 Abnormal weight loss; Z68.23 Body mass index [BMI] 23.0-23.9, adult; Z87.440 Personal history of urinary (tract) infections; Z85.828 Personal history of other malignant neoplasm of skin; Z90.710 Acquired absence of both cervix and uterus; Z88.2 Allergy status to sulfonamides; Z88.8 Allergy status to other drugs, medicaments and biological substances; Z98.42 Cataract extraction status, left eye; Z98.41 Cataract extraction status, right eye; Z80.1 Family history of malignant neoplasm of trachea, bronchus and lung
CPT/HCPCS: 36415; 36600; 74176; 80053; 81001; 82150; 82607; 82805; 82962; 83540; 83550; 83605; 83690; 85007; 85025; 87040; 87077; 87086; 87186; 94640; 94660; C9113; J1644; J2020; J2185; J2270; J2543; J3370; J3490; J7030; J7050; J7060; G0378; J7626

== ENCOUNTER 2020-03-24 18:28 | Inpatient (IN) | payer OTHER ==
[~2020-03-24 18:28] MED LIST: AMLO2.5T5 PO; ASCO500C PO; ATOR20TA58 PO; CEVI30CA PO; FURO20TA3 PO; GEMF600T8 PO; METF500T16 PO; METH1TAB13 PO; METO25TA4 PO; PANT40TA77 PO; SILD20TA4 PO; TROS20TA2 PO
[2020-03-24 19:00] VITALS: BP 118/47
[2020-03-24] MEDS ORDERED: MORPHINE SULFATE 4 MG/ML VIAL. IV PRN (19:15)
--- NOTE | 2020-03-24 19:16 | NUR ---
Patient status changed to Hospice Inpatient as of 189903/24/20. hospice nurses assessed and saw patient late afternoon of 03/24. Report given to Jazmyne GOLDEN
[2020-03-25] MEDS: MORPHINE SULFATE 2 MG/ML VIAL. IV PRN (03:07)
--- NOTE | 2020-03-25 07:24 | NUR ---
patient re assessed at 0605 and no breathe, no pulse and gag reflex, Dr Dockery notified and pronounced, Bassett notified and family contacted(Heydi ) and informed about pt's condition.
[2020-03-26] MEDS ORDERED: SCOPOLAMINE 1.5MG PATCH. TD SCH (09:00)
== END 2020-03-25 10:35 | disposition expired | DRG 871 ==
LOC: 4 NORTH 18:28
PROVIDERS: ADMIT Family Medicine; ATTEND Family Medicine
DX: A41.9 Sepsis, unspecified organism (principal); J96.00 Acute respiratory failure, unspecified whether with hypoxia or hypercapnia; K85.90 Acute pancreatitis without necrosis or infection, unspecified; A04.71 Enterocolitis due to Clostridium difficile, recurrent; K55.9 Vascular disorder of intestine, unspecified; Z79.899 Other long term (current) drug therapy; Z88.8 Allergy status to other drugs, medicaments and biological substances; K21.9 Gastro-esophageal reflux disease without esophagitis; J45.909 Unspecified asthma, uncomplicated; N28.89 Other specified disorders of kidney and ureter; M35.00 Sjogren syndrome, unspecified; E78.5 Hyperlipidemia, unspecified; I10 Essential (primary) hypertension; E11.9 Type 2 diabetes mellitus without complications; D64.9 Anemia, unspecified; R63.4 Abnormal weight loss; Z68.23 Body mass index [BMI] 23.0-23.9, adult
CPT/HCPCS: 99285; J2060; J2270; G0378